=== PATIENT | female | born 1995 | race African-American/Black ===

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

== ENCOUNTER 2017-04-17 18:15 | Inpatient (IN) | payer OTHER ==
[2017-04-17] MEDS ORDERED: METOCLOPRAMIDE HCL INJECTION 10 MG/2 ML VIAL IVPUSH ONE (18:40)
[2017-04-17] MEDS ORDERED: SODIUM CHLORIDE 1,000 ML IV STA (18:40)
[2017-04-17] MEDS ORDERED: ACETAMINOPHEN 1000 MG/100 ML VIAL (NON FORMULARY) IVPB ONE (18:40)
--- NOTE | 2017-04-17 18:46 | PDOC ---
History of Present Illness <Anyi Villalta - Last Filed: 04/17/17 18:51> - General History Source: Patient Exam Limitations: No Limitations <Zaki Waddell - Last Filed: 04/17/17 18:58> - General Stated Complaint: HEADACHE Time Seen by Provider: 04/17/17 18:40 Past History <Anyi Villalta - Last Filed: 04/17/17 18:51> - Past Medical History Anemia: No Asthma: No COPD: No Diabetes: No HTN: No Seizures: No Other medical history: OBESITY - Immunization History Immunization Up to Date: Yes - Suicide/Smoking/Psychosocial Hx Smoking History: Never smoked Have you smoked in the past 12 months: No Information on smoking cessation initiated: No Hx Alcohol Use: No Drug/Substance Use Hx: No Substance Use Type: None <Zaki Waddell - Last Filed: 04/17/17 18:58> - Past Medical History Allergies/Adverse Reactions: Allergies Allergy/AdvReac Type Severity Reaction Status Date / Time No Known Allergies Allergy Verified 07/11/16 12:17 Home Medications: Ambulatory Orders Acetaminophen/Caffeine/Butalb [Fioricet -] 1 tablet PO Q6H PRN #20 tablet MDD 4 tabs 01/24/16 acetaZOLAMIDE [Diamox -] 125 mg PO BID #60 tablet 01/24/16 Doxycycline Hyclate 100 mg PO BID #14 capsule 07/11/16 Oxycodone HCl/Acetaminophen [Percocet 5-325 mg Tablet] 1 tab PO Q4H #10 tablet MDD 6 07/11/16 Review of Systems - Review of Systems Comments:: 04/17/17 18:51 GENERAL/CONSTITUTIONAL: No fever or chills. No weakness. HEAD, EYES, EARS, NOSE AND THROAT: No change in vision. No ear pain or discharge. No sore throat. CARDIOVASCULAR: No chest pain or shortness of breath. RESPIRATORY: No cough, wheezing, or hemoptysis. GASTROINTESTINAL: No nausea, vomiting, diarrhea or constipation. GENITOURINARY: No dysuria, frequency, or change in urination. MUSCULOSKELETAL: No joint or muscle swelling or pain. No neck or back pain. SKIN: No rash NEUROLOGIC: +headache, no vertigo, loss of consciousness, or change in strength/ sensation. ENDOCRINE: No increased thirst. No abnormal weight change. HEMATOLOGIC/LYMPHATIC: No anemia, easy bleeding, or history of blood clots. ALLERGIC/IMMUNOLOGIC: No hives or skin allergy. <Anyi Villalta - Last Filed: 04/17/17 18:51> *Physical Exam - Vital Signs Last Vital Signs Temp Pulse Resp BP Pulse Ox 98.7 F 105 H 17 148/69 100 04/17/17 18:28 04/17/17 18:28 04/17/17 18:28 04/17/17 18:28 04/17/17 18:28 - Physical Exam Comments: 04/17/17 18:48 GENERAL: Awake, alert, and fully oriented, in no acute distress HEAD: No signs of trauma EYES: PERRLA, EOMI, sclera anicteric, conjunctiva clear ENT: Auricles normal inspection, hearing grossly normal, nares patent, oropharynx clear without exudates. Moist mucosa NECK: Normal ROM, supple, no lymphadenopathy, JVD, or masses LUNGS: Breath sounds equal, clear to auscultation bilaterally. No wheezes, and no crackles HEART: Regular rate and rhythm, normal S1 and S2, no murmurs, rubs or gallops ABDOMEN: Soft, obese, nontender, normoactive bowel sounds. No guarding, no rebound. No masses EXTREMITIES: Normal range of motion, no edema. No clubbing or cyanosis. No cords, erythema, or tenderness SKIN: Warm, Dry, normal turgor, no rashes or lesions noted. NEUROLOGICAL: CN II-XII intact, 5/5 strength upper and lower extremities, Sensation intact throughout all extremities, No pronator drift, Gait Normal, Speech Normal,Finger to nose intact, Rapid alternating movements intact <Anyi Villalta - Last Filed: 04/17/17 18:51> - Vital Signs Last Vital Signs Temp Pulse Resp BP Pulse Ox 98.7 F 105 H 17 148/69 100 04/17/17 18:28 04/17/17 18:28 04/17/17 18:28 04/17/17 18:28 04/17/17 18:28 <Zaki Waddell - Last Filed: 04/17/17 18:58> ED Treatment Course - LABORATORY CBC & Chemistry Diagram: 04/17/17 18:51 04/17/17 18:50 <Zaki Waddell - Last Filed: 04/17/17 18:58> Medical Decision Making - Medical Decision Making 04/17/17 18:42 A portion of this note was documented by scribe services under my direction. I have reviewed the details of the note, within reason, and agree with the documentation with the following case summary and management plan written by me. Patient treated in the ED. Nursing notes are reviewed and incorporated into the medical decision-making. Vital signs reviewed. Peripheral IV access obtained by the nurse, laboratory studies are drawn and sent, reviewed and interpreted by myself. Vital Signs Temp Pulse Resp BP Pulse Ox 98.7 F 105 H 17 148/69 100 04/17/17 18:28 04/17/17 18:28 04/17/17 18:28 04/17/17 18:28 04/17/17 18:28 22-year-old female with history of idiopathic intracranial hypertension, migraines, obesity presents with headache for several days. Patient reported a constant throbbing-like headache without photophobia and occasional phonophobia. Denies fevers or neck stiffness. Patient reports that this feels like her prior migraines and idiopathic intracranial hypertension headache. Patient reports that she has had lumbar puncture performed before. States that she denies any blurry vision or difficulty seeing. Came to the ED for further evaluation. The patient is neurologically intact. Differential includes idiopathic, hypertension headache and migraines. We'll give patient's medications for migraines. If the headache does not improve, patient should be admitted for consideration for lumbar puncture. I had counseled the patient on weight loss counseling given her obesity and idiopathic intracranial hypertension. We'll give referral to a back surgeon at the request of the patient. Case signed out to Dr. Vidal for further management and disposition. <Zaki Waddell - Last Filed: 04/17/17 18:58> *DC/Admit/Observation/Transfer <Anyi Villalta - Last Filed: 04/17/17 18:51> <Zaki Waddell - Last Filed: 04/17/17 18:58> Diagnosis at time of Disposition: Pseudotumor cerebri - Discharge Dispostion Condition at time of disposition: Stable - Referrals Referrals: Justino Brothers DO [Staff Physician] - Tariq Graham MD [Staff Physician] - - Patient Instructions Printed Discharge Instructions: DI for Headache
[2017-04-17 18:54] LABS: BASO % 0.6 % (0-2.0); WHITE BLOOD COUNT 7.4 K/mm3 (4.0-10.0)
[2017-04-17] MEDS ORDERED: METOCLOPRAMIDE HCL INJECTION 10 MG/2 ML VIAL ONE (18:54)
[2017-04-17] MEDS ORDERED: ACETAMINOPHEN INJECTION 100 ML IVPB ONE (18:54)
[2017-04-17 19:02] LABS: EOS % 1.5 % (0-4.5); HEMATOCRIT 20.2 % (32.4-45.2); LYMPH % 25.3 % (8-40); MCHC 29.5 g/dl (32.0-36.0); MEAN CELL VOLUME 55.1 fl (80-96); MEAN PLT VOLUME 8.9 fl (7.5-11.1); MONO % 5.9 % (3.8-10.2); NEUT % 66.7 % (42.8-82.8); PLATELET COUNT 208 K/MM3 (134-434); RBC 3.66 M/mm3 (3.60-5.2); RDW 19.4 % (11.6-15.6)
[2017-04-17 19:03] LABS: MCH 16.2 pg (25.7-33.7)
[2017-04-17 19:04] LABS: HEMOGLOBIN 5.9 GM/dL (10.7-15.3)
[2017-04-17 19:17] LABS: ALBUMIN 3.1 g/dl (3.4-5.0); ALK PHOS 87 U/L (45-117); ANION GAP 6 (8-16); BILIRUBIN,TOTAL 0.2 mg/dL (0.2-1.0); BLOOD UREA NITROGEN 9 mg/dL (7-18); CHLORIDE 109 mmol/L (98-107); CO2 27 mmol/L (21-32); CREATININE 0.9 mg/dL (0.55-1.02); GLUCOSE,RANDOM 85 mg/dL (74-106); POTASSIUM 3.6 mmol/L (3.5-5.1); SGOT/AST 15 U/L (15-37); SGPT/ALT 15 U/L (12-78); SODIUM 142 mmol/L (136-145); TOT PROT 7.2 g/dl (6.4-8.2)
[2017-04-17 21:07] LABS: BASO % 0.5 % (0-2.0); EOS % 1.9 % (0-4.5); HEMATOCRIT 19.3 % (32.4-45.2); MCHC 29.4 g/dl (32.0-36.0); MEAN CELL VOLUME 55.2 fl (80-96); MEAN PLT VOLUME 8.7 fl (7.5-11.1); MONO % 6.3 % (3.8-10.2); NEUT % 62.3 % (42.8-82.8); PLATELET COUNT 201 K/MM3 (134-434); RBC 3.49 M/mm3 (3.60-5.2); RDW 19.8 % (11.6-15.6); WHITE BLOOD COUNT 7.5 K/mm3 (4.0-10.0)
[2017-04-17 21:08] LABS: HEMOGLOBIN 5.7 GM/dL (10.7-15.3); MCH 16.2 pg (25.7-33.7)
--- NOTE | 2017-04-17 21:11 | PDOC ---
*Physical Exam - Vital Signs Last Vital Signs Temp Pulse Resp BP Pulse Ox 98.7 F 105 H 17 148/69 100 04/17/17 18:28 04/17/17 18:28 04/17/17 18:28 04/17/17 18:28 04/17/17 18:28 ED Treatment Course - LABORATORY CBC & Chemistry Diagram: 04/17/17 20:59 04/17/17 18:50 - ADDITIONAL ORDERS Additional order review: Laboratory Results 04/17/17 04/17/17 18:51 18:50 Sodium 142 Potassium 3.6 Chloride 109 H Carbon Dioxide 27 Anion Gap 6 L BUN 9 Creatinine 0.9 Creat Clearance w eGFR > 60 Random Glucose 85 Calcium 8.0 L Total Bilirubin 0.2 AST 15 ALT 15 Alkaline Phosphatase 87 Total Protein 7.2 Albumin 3.1 L Serum , Qual Negative 04/17/17 04/17/17 20:59 18:51 RBC 3.49 L 3.66 D MCV 55.2 L 55.1 L MCHC 29.4 L 29.5 L RDW 19.8 H 19.4 H D MPV 8.7 8.9 Neutrophils % 62.3 66.7 D Lymphocytes % 29.0 25.3 D Monocytes % 6.3 5.9 D Eosinophils % 1.9 1.5 D Basophils % 0.5 0.6 - Medications Given in the ED: ED Medications Discontinued Medications Generic Name Dose Route Start Last Admin Trade Name Freq PRN Reason Stop Dose Admin Acetaminophen 1,000 mg 04/17/17 18:40 04/17/17 19:04 Ofirmev Injection - IVPB 04/17/17 18:41 1,000 mg ONCE ONE Administration Diphenhydramine HCl 25 mg 04/17/17 18:40 04/17/17 19:04 Benadryl Injection - IVPB 04/17/17 18:41 25 mg ONCE ONE Administration Sodium Chloride 1,000 mls @ 1,000 mls/hr 04/17/17 18:40 04/17/17 19:04 Normal Saline - IV 04/17/17 19:39 1,000 mls/hr ASDIR STA Administration Metoclopramide HCl 10 mg 04/17/17 18:40 04/17/17 19:05 Reglan Injection - IVPUSH 04/17/17 18:41 10 mg ONCE ONE Administration Medical Decision Making - Medical Decision Making 04/17/17 21:10 Late entry. Pt endorsed to me by Dr. Waddell at 7pm shift change. Presented with headache, found to have significant anemia, which was unexpected. Repeat CBC has resulted, similar to prior. Will send additional anemia labs and plan for transfusion and admission. Will discuss with patient regarding possible etiology of anemia. 04/17/17 21:28 Results d/w patient. She has history of similar presentation in the past, required transfusion. Agreeable to admission. *DC/Admit/Observation/Transfer Diagnosis at time of Disposition: Pseudotumor cerebri Anemia Qualifiers: Anemia type: unspecified type Qualified Code(s): D64.9 - Anemia, unspecified Headache Qualifiers: Headache type: unspecified Headache chronicity pattern: episodic headache Intractability: not intractable Qualified Code(s): R51 - Headache - Discharge Dispostion Condition at time of disposition: Stable Admit: Yes - Referrals Referrals: Tariq Graham MD [Staff Physician] - Justino Brothers DO [Staff Physician] - - Patient Instructions Printed Discharge Instructions: DI for Headache - Post Discharge Activity
[2017-04-17 21:20] LABS: INR 1.11 (0.82-1.09); PROTHROMBIN TIME (PATIENT) 12.5 SEC (9.98-11.88)
[2017-04-17 21:22] LABS: ACTIVATED PTT 28.6 SECONDS (26.9-34.4)
--- NOTE | 2017-04-17 21:41 | PN ---
Teaching Attending Note Name of Resident: Mark Hale ATTENDING PHYSICIAN STATEMENT I saw and evaluated the patient. I reviewed the resident's note and discussed the case with the resident. I agree with the resident's findings and plan as documented. SUBJECTIVE: 22 F with Pmhx of Anemia and idiopathic intercranial htn, migraines and obesity who presented with headache which is dull and throbbing for 5 days. States headache is the same as her migraines. Denies any visual changes. States headache is much improved after recieving medications earlier. Denies any numbness or tingling. States she was anemic one year ago, when she was hospitalized for headache. States her last period was in February and she menstruated for close to 2 weeks, going through around 3/pads/day. Note she has never seen a gynocologist. States she is not on any OCPS. States her menstrual cycle is irregular. She currently denies any hematemeis, Hematouria or black/ bloody stools. Denies any chest pain, pressure, or shortness of breath. as per her mom she was evaluated at for Sick cell/thal and screening was negative. Denies any neck pain/ Stiffness. No fevers or chills. OBJECTIVE: Physical: VS: GEN: Obese female, NAD, resting in bed, AA0X3 HEENT: NCAT, PERRL, Throat without erythema or exudates CARD: S Tach S1 S2 RESP: CTAB ABD: BSx4, NTD to palpation EXT: - C/C/E RECTAL: Deferrred Vital Signs Period Temp Pulse Resp BP Sys/Holly Pulse Ox Last 24 Hr 98.7 F 105 17 148/69 100 CBCD WBC 7.5 K/mm3 (4.0-10.0) 04/17/17 20:59 RBC 3.49 M/mm3 (3.60-5.2) L 04/17/17 20:59 Hgb 5.7 GM/dL (10.7-15.3) L* 04/17/17 20:59 Hct 19.3 % (32.4-45.2) L 04/17/17 20:59 MCV 55.2 fl (80-96) L 04/17/17 20:59 MCHC 29.4 g/dl (32.0-36.0) L 04/17/17 20:59 RDW 19.8 % (11.6-15.6) H 04/17/17 20:59 Plt Count 201 K/MM3 (134-434) 04/17/17 20:59 MPV 8.7 fl (7.5-11.1) 04/17/17 20:59 CMP Sodium 142 mmol/L (136-145) 04/17/17 18:50 Potassium 3.6 mmol/L (3.5-5.1) 04/17/17 18:50 Chloride 109 mmol/L (98-107) H 04/17/17 18:50 Carbon Dioxide 27 mmol/L (21-32) 04/17/17 18:50 Anion Gap 6 (8-16) L 04/17/17 18:50 BUN 9 mg/dL (7-18) 04/17/17 18:50 Creatinine 0.9 mg/dL (0.55-1.02) 04/17/17 18:50 Creat Clearance w eGFR > 60 (>60) 04/17/17 18:50 Random Glucose 85 mg/dL (74-106) 04/17/17 18:50 Calcium 8.0 mg/dL (8.5-10.1) L 04/17/17 18:50 Total Bilirubin 0.2 mg/dL (0.2-1.0) 04/17/17 18:50 AST 15 U/L (15-37) 04/17/17 18:50 ALT 15 U/L (12-78) 04/17/17 18:50 Alkaline Phosphatase 87 U/L (45-117) 04/17/17 18:50 Total Protein 7.2 g/dl (6.4-8.2) 04/17/17 18:50 Albumin 3.1 g/dl (3.4-5.0) L 04/17/17 18:50 CT HEAD- PENDING PELVIC US- PENDING EKG- S Tach ASSESSMENT AND PLAN: 22 F with Pmhx of Anemia and idiopathic intercranial htn, migraines and obesity who presented with headache, found to be anemic 1.) Symptomatic Anemia - Microcytic - FU Fe studies,LDH, Retic - Transfuse 2 U PRBC - Goal HgB >7 - Type & Screen - Repeat CBC post tx - Heme consult for IV iron - Cad Designer consult - Check TSH 2.) Headache - Most likely migraine - CT Head due to severity and duration - Pain Control - If not resolving can consider LP 3.) DVT PPx - SCDs Rest as per resident note
[2017-04-17 21:44] LABS: LDH 198 U/L (84-246)
--- NOTE | 2017-04-17 21:58 | HP ---
CHIEF COMPLAINT: Headache x 5 days PCP: Kathy Mora HISTORY OF PRESENT ILLNESS: The Pt is a 22yo F with PMHx of idiopathic intracranial HTN, migraine and obesity presenting with a 5 day hx of headache. The pain is 7-10/10, located frontally and occipitally, has been constant, dull and occasionally burning. Relieved by lying in a dark room. No associated n/v/ no preceding aura, no blurry vision, no dizziness, palpitations or chest pain. No fever or neck pain, no myalgias or sick contacts. Pt noticed a cough today which is non productive. Pt has had similar headaches in the past. 2 years ago she was diagnsed here with idiopathic intracranial HTN and had CSF decompression to relieve the headache. She does not use any migraine medications at home except for motrin. No hx of contraceptive use. While in the ED, pt was found to be anemic at 5.7. No hx of hemolysis in the past, no bleeding disorder, no melena stool or BRBPR. Pt normally has irregular cycles lasting between 3 days and 2 weeks soaking up to 3 pads in the day time and occassionally with clots. LMP was late February, no associated dysmenorrhea. Pt had similar iron deficiency anemia a her last admission 2015 and was transfused. She does not have a property developer, and has never been investigated for the heavy bleeds. ER course was notable for: (1) hgb-5.7, Ferritin-1.2 (2)iv tylenol 1g, NS -1L (3)type and screen, Recent Travel: None PAST MEDICAL HISTORY: idiopathic intracranial HTN, migraine obesity Gyne: LMP february 2016 PAST SURGICAL HISTORY: Social History: Smoking:Never Alcohol:Never Drugs: Never Family History: No bleeding hx Allergies No Known Allergies Allergy (Verified 07/11/16 12:17) HOME MEDICATIONS: Home Medications Medication Instructions Recorded Acetaminophen/Caffeine/Butalb 1 tablet PO Q6H PRN #20 tablet MDD 01/24/16 [Fioricet -] 4 tabs acetaZOLAMIDE [Diamox -] 125 mg PO BID #60 tablet 01/24/16 Doxycycline Hyclate 100 mg PO BID #14 capsule 07/11/16 Oxycodone HCl/Acetaminophen 1 tab PO Q4H #10 tablet MDD 6 07/11/16 [Percocet 5-325 mg Tablet] REVIEW OF SYSTEMS CONSTITUTIONAL: Absent: fever, chills, diaphoresis, generalized weakness, malaise, loss of appetite, weight change HEENT: Absent: rhinorrhea, nasal congestion, throat pain, throat swelling, difficulty swallowing, mouth swelling, ear pain, eye pain, visual changes CARDIOVASCULAR: Absent: chest pain, syncope, palpitations, irregular heart rate, lightheadedness , peripheral edema RESPIRATORY: Absent: cough, shortness of breath, dyspnea with exertion, orthopnea, wheezing, stridor, hemoptysis GASTROINTESTINAL: Absent: abdominal pain, abdominal distension, nausea, vomiting, diarrhea, constipation, melena, hematochezia GENITOURINARY: Absent: dysuria, frequency, urgency, hesitancy, hematuria, flank pain, genital pain MUSCULOSKELETAL: Absent: myalgia, arthralgia, joint swelling, back pain, neck pain SKIN: Absent: rash, itching, pallor HEMATOLOGIC/IMMUNOLOGIC: Absent: easy bleeding, easy bruising, lymphadenopathy, frequent infections ENDOCRINE: Absent: unexplained weight gain, unexplained weight loss, heat intolerance, cold intolerance NEUROLOGIC: Absent: headache+, focal weakness or paresthesias, dizziness, unsteady gait, seizure, mental status changes, bladder or bowel incontinence PSYCHIATRIC: Absent: anxiety, depression, suicidal or homicidal ideation, hallucinations. PHYSICAL EXAMINATION Vital Signs - 24 hr 04/17/17 18:28 Temperature 98.7 F Pulse Rate 105 H Respiratory 17 Rate Blood Pressure 148/69 O2 Sat by Pulse 100 Oximetry (%) GENERAL: Awake, alert, and fully oriented, in no acute distress. HEAD: Normal with no signs of trauma. EYES: Pupils equal, round and reactive to light, extraocular movements intact, sclera anicteric, conjunctiva clear. Fundoscopic exam: Could not appreciate any papilledema EARS, NOSE, THROAT: Ears normal, nares patent, oropharynx clear without exudates. Moist mucous membranes. NECK: Normal range of motion, supple without lymphadenopathy, JVD, or masses. LUNGS: Breath sounds equal, clear to auscultation bilaterally. No wheezes, and no crackles. HEART: Tachycardic, S1 and S2 ABDOMEN: Soft, nontender, not distended, normoactive bowel sounds, no guarding, no rebound, no masses. CRISTINA: Good anal hygiene, no skin tags. No palpable masses, rectal vault empty of stool. Gloved finger clean. FOBT- negative MUSCULOSKELETAL: Normal range of motion at all joints. No bony deformities or tenderness. No CVA tenderness. UPPER EXTREMITIES: 2+ pulses, warm, well-perfused. No cyanosis. No clubbing. No peripheral edema. LOWER EXTREMITIES: 2+ pulses, warm, well-perfused. No calf tenderness. No peripheral edema. NEUROLOGICAL: Cranial nerves II-XII intact. Normal speech. PSYCHIATRIC: Cooperative. Good eye contact. Appropriate mood and affect. Laboratory Results - last 24 hr 04/17/17 04/17/17 04/17/17 18:50 18:51 18:51 WBC 7.4 D RBC 3.66 D Hgb 5.9 L* D Hct 20.2 L D MCV 55.1 L MCH 16.2 L MCHC 29.5 L RDW 19.4 H D Plt Count 208 D MPV 8.9 Neutrophils % 66.7 D Lymphocytes % 25.3 D Monocytes % 5.9 D Eosinophils % 1.5 D Basophils % 0.6 PT with INR INR PTT (Actin FS) Sodium 142 Potassium 3.6 Chloride 109 H Carbon Dioxide 27 Anion Gap 6 L BUN 9 Creatinine 0.9 Creat Clearance w eGFR > 60 Random Glucose 85 Calcium 8.0 L Ferritin 1.289 L Total Bilirubin 0.2 AST 15 ALT 15 Alkaline Phosphatase 87 LD Total 198 Total Protein 7.2 Albumin 3.1 L Serum , Qual Negative Crossmatch 04/17/17 04/17/17 04/17/17 20:59 20:59 20:59 WBC 7.5 RBC 3.49 L Hgb 5.7 L* Hct 19.3 L MCV 55.2 L MCH 16.2 L MCHC 29.4 L RDW 19.8 H Plt Count 201 MPV 8.7 Neutrophils % 62.3 Lymphocytes % 29.0 Monocytes % 6.3 Eosinophils % 1.9 Basophils % 0.5 PT with INR 12.50 H INR 1.11 PTT (Actin FS) 28.6 Sodium Potassium Chloride Carbon Dioxide Anion Gap BUN Creatinine Creat Clearance w eGFR Random Glucose Calcium Ferritin Total Bilirubin AST ALT Alkaline Phosphatase LD Total Total Protein Albumin Serum , Qual Crossmatch See Detail ASSESSMENT/PLAN: Pt is a 22yo F with PMHx of idiopathic intracranial HTN, migraine and obesity presenting with a 5 day hx of headache and found to be anemic Headache: Could be 2/2 to anemia R/O migraine R/O idiopathic intracranial hemorrhage Received iv tylenol Tachycardia, Hgb-5.7, Microcytic anemia Iv NS 1L type and screen Transfuse 2 units of PRBC Iv tylenol CT head TSH Microcytic anemia: Could be 2/2 to menometrorrhagia heavy and prolonged menstrual bleeds Hgb-5.7 Ferritin- 1.289 Pending TIBC- Retic Haptoglobulins type and screen Transfuse 2 units of PRBC Hemonc consult- Dr Weeks Repeat CBC Insurance Office Manager consult- Dr Villegas Pelvis/bladder US Fecal occult test- negative 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 - New Patient This patient is new to me today: Yes Date on this admission: 04/18/17 - Critical Care Critical Care patient: No Hospitalist Screening - Colonoscopy Questionnaire Colonoscopy Questionnaire: Colonoscopy Questionnaire - Patient: 50 - 75 years old and never had a screening colonoscopy: No History of colon or rectal polyps, or CA: No History of IBD, Crohn's disease or UC: No History of abdominal radiation therapy as a child: No - Relative: 1 with colon or rectal CA, or polyps at age 60 or younger: No Colon or rectal CA diagnosed at age 45 or younger: No Multiple relatives with colon or rectal CA: No - Outcome: Screening Result: Negative Screen
[2017-04-17] MEDS: SODIUM CHLORIDE 1,000 ML IV STA (22:35)
[2017-04-18] MEDS ORDERED: ACETAMINOPHEN 1000 MG/100 ML VIAL (NON FORMULARY) IVPB ONE ×2 (00:03→04:00)
[2017-04-18] MEDS: SODIUM CHLORIDE 1,000 ML IV STA (00:24)
[2017-04-18 06:59] VITALS: BMI 52.7
[2017-04-18 07:14] LABS: INR 1.09 (0.82-1.09); PROTHROMBIN TIME (PATIENT) 12.3 SEC (9.98-11.88)
--- NOTE | 2017-04-18 07:16 | PN ---
Physical Exam: SUBJECTIVE: Patient seen and examined. s/p 2 units of PRBC. Says headache resolved after the transfusion. Patient states she has irregular menses and never seen a horticultural technical officer. Denies dizziness, SOB, chest pain ,nausea, vomiting, blood in stool. OBJECTIVE: Vital Signs Period Temp Pulse Resp BP Sys/Holly Pulse Ox Last 24 Hr 98.1 F-982 F 99-106 17-24 114-148/64-80 99-100 GENERAL: Obese, The patient is awake, alert, and fully oriented, in no acute distress. HEAD: Normal with no signs of trauma. EYES: PERRL, extraocular movements intact, sclera anicteric, conjunctiva clear. No ptosis. ENT: oropharynx clear without exudates, moist mucous membranes. NECK: supple. LUNGS: Breath sounds equal, clear to auscultation bilaterally, no wheezes, no crackles, no accessory muscle use. HEART: tachy, regular rhythm, S1, S2 without murmur, rub or gallop. ABDOMEN: Soft, nontender, nondistended, normoactive bowel sounds, no guarding, no rebound. EXTREMITIES: 2+ pulses, warm, well-perfused, no edema. NEUROLOGICAL: Cranial nerves II through XII grossly intact. Normal speech, gait not observed. PSYCH: Normal mood, normal affect. SKIN: Warm, dry, normal turgor, no rashes or lesions noted Laboratory Results - last 24 hr 04/17/17 04/17/17 04/17/17 18:50 18:51 18:51 WBC 7.4 D RBC 3.66 D Hgb 5.9 L* D Hct 20.2 L D MCV 55.1 L MCH 16.2 L MCHC 29.5 L RDW 19.4 H D Plt Count 208 D MPV 8.9 Neutrophils % 66.7 D Lymphocytes % 25.3 D Monocytes % 5.9 D Eosinophils % 1.5 D Basophils % 0.6 PT with INR INR PTT (Actin FS) Sodium 142 Potassium 3.6 Chloride 109 H Carbon Dioxide 27 Anion Gap 6 L BUN 9 Creatinine 0.9 Creat Clearance w eGFR > 60 Random Glucose 85 Calcium 8.0 L Ferritin 1.289 L Total Bilirubin 0.2 AST 15 ALT 15 Alkaline Phosphatase 87 LD Total 198 Total Protein 7.2 Albumin 3.1 L Serum , Qual Negative Stool Occult Blood Blood Type Antibody Screen Crossmatch 02/25/18 02/25/18 02/25/18 20:57 20:59 20:59 WBC RBC Hgb Hct MCV MCH MCHC RDW Plt Count MPV Neutrophils % Lymphocytes % Monocytes % Eosinophils % Basophils % PT with INR 12.50 H INR 1.11 PTT (Actin FS) 28.6 Sodium Potassium Chloride Carbon Dioxide Anion Gap BUN Creatinine Creat Clearance w eGFR Random Glucose Calcium Ferritin Total Bilirubin AST ALT Alkaline Phosphatase LD Total Total Protein Albumin Serum , Qual Stool Occult Blood Blood Type O POSITIVE O POSITIVE Antibody Screen Negative Crossmatch See Detail 04/17/17 04/17/17 20:59 22:30 WBC 7.5 RBC 3.49 L Hgb 5.7 L* Hct 19.3 L MCV 55.2 L MCH 16.2 L MCHC 29.4 L RDW 19.8 H Plt Count 201 MPV 8.7 Neutrophils % 62.3 Lymphocytes % 29.0 Monocytes % 6.3 Eosinophils % 1.9 Basophils % 0.5 PT with INR INR PTT (Actin FS) Sodium Potassium Chloride Carbon Dioxide Anion Gap BUN Creatinine Creat Clearance w eGFR Random Glucose Calcium Ferritin Total Bilirubin AST ALT Alkaline Phosphatase LD Total Total Protein Albumin Serum , Qual Stool Occult Blood Negative Blood Type Antibody Screen Crossmatch ASSESSMENT/PLAN: 22 yo F wtih PMH pseudotumor cerebri, migraines and anemia with irregular menses presented with headache and was found with a Hgb 5.9. #Symptomatic Anemia -s/p 2 Units of PRBC -Hgb now at 7.5. Will repeat Hgb. -Ferritin of 1.2, Venofer x 1 given. -Gynecology and hematology consulted. -FU reccs -FOBT negative -FU Vaginal U/S #Migraines -resolved -Head CT unremarkable -Fioricet prn q6h -Follow up neuro outpatient #Hx of Pseudotumor Cerebri -no suspicion at this time -last attack in 2016 -Not on any meds #Morbid obesity -BMI of 52 -Bariatric referral on discharge #FEN -No IV fluids -WNL -Cholesterol/Fat controlled diet #PPX -EAM Dispo: Likely d/c tomorrow, pending heme consult Visit type - Emergency Visit Emergency Visit: Yes ED Registration Date: 04/17/17 Care time: The patient presented to the Emergency Department on the above date and was hospitalized for further evaluation of their emergent condition. - New Patient This patient is new to me today: Yes Date on this admission: 04/18/17 - Critical Care Critical Care patient: No
[2017-04-18 07:20] LABS: ALBUMIN 2.7 g/dl (3.4-5.0); ANION GAP 7 (8-16); BILIRUBIN,TOTAL 0.4 mg/dL (0.2-1.0); BLOOD UREA NITROGEN 7 mg/dL (7-18); CALCIUM 7.6 mg/dL (8.5-10.1); CHLORIDE 111 mmol/L (98-107); CO2 24 mmol/L (21-32); CREATININE 0.8 mg/dL (0.55-1.02); GLUCOSE,RANDOM 74 mg/dL (74-106); MAGNESIUM 1.9 mg/dL (1.8-2.4); PHOSPHOROUS 3.5 mg/dL (2.5-4.9); POTASSIUM 3.6 mmol/L (3.5-5.1); SGOT/AST 14 U/L (15-37); SGPT/ALT 13 U/L (12-78); SODIUM 142 mmol/L (136-145); TOT PROT 6.5 g/dl (6.4-8.2)
[2017-04-18 07:23] LABS: BASO % 0.5 % (0-2.0); LYMPH % 30.5 % (8-40); MCHC 30.4 g/dl (32.0-36.0); MEAN CELL VOLUME 58.5 fl (80-96); MEAN PLT VOLUME 9.6 fl (7.5-11.1); MONO % 6.8 % (3.8-10.2); NEUT % 60.2 % (42.8-82.8); PLATELET COUNT 172 K/MM3 (134-434); RBC 3.76 M/mm3 (3.60-5.2); RDW 24.2 % (11.6-15.6); WHITE BLOOD COUNT 7.5 K/mm3 (4.0-10.0)
[2017-04-18 07:29] LABS: ALK PHOS 78 U/L (45-117)
[2017-04-18 07:51] LABS: MCH 17.8 pg (25.7-33.7)
[2017-04-18 07:52] LABS: HEMOGLOBIN 6.7 GM/dL (10.7-15.3)
--- NOTE | 2017-04-18 08:08 | CON.OBG ---
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 h/o hospitalization 01/2016 for headache. LP brain MRI & CThead was done, neg ). No: Seizure Cardio/Vascular: No: HTN, Murmur Pulmonary: No: Asthma Gastrointestinal: No: Constipation, Gastritis Renal/: No: UTI ...LMP: 03/17/17 (last period was 10 days bleeding lingering ) ...: 0 ...Para: 0 Heme/Onc: Yes: Anemia (hospitalized in 01/2016 for same episode she was transfused ). No: Bleeding Disorder, Sickle Cell Disease Infectious Disease: No: Other (denies any infection ) Psych: No: Other (denies mental disorder) Musculoskeletal: No: Chronic low back pain Rheumatology: Yes: Other (declines any history) Endocrine: No: Diabetes Mellitus, Hypothyroidism - Past Surgical History Past Surgical History: Yes: None - Alcohol/Substance Use Hx Alcohol Use: No History of Substance Use: reports: None - Smoking History Smoking history: Never smoked Have you smoked in the past 12 months: No Home Medications - Allergies Allergies/Adverse Reactions: Allergies Allergy/AdvReac Type Severity Reaction Status Date / Time No Known Allergies Allergy Verified 07/11/16 12:17 - Home Medications Home Medications: Ambulatory Orders Acetaminophen/Caffeine/Butalb [Fioricet -] 1 tablet PO Q6H PRN #20 tablet MDD 4 tabs 01/24/16 acetaZOLAMIDE [Diamox -] 125 mg PO BID #60 tablet 01/24/16 Doxycycline Hyclate 100 mg PO BID #14 capsule 07/11/16 Oxycodone HCl/Acetaminophen [Percocet 5-325 mg Tablet] 1 tab PO Q4H #10 tablet MDD 6 07/11/16 Review of Systems - Review of Systems Constitutional: reports: No Symptoms. denies: Chills Eyes: reports: No Symptoms HENT: reports: Other (headache) Neck: reports: No Symptoms. denies: Pain on Movement, Stiffness Cardiovascular: reports: No Symptoms. denies: Chest Pain, Shortness of Breath Respiratory: reports: No Symptoms. denies: Hemoptysis, SOB Gastrointestinal: reports: No Symptoms. denies: Constipation, Rectal Bleeding, Vomiting Blood Genitourinary: reports: No Symptoms. denies: Vaginal Bleeding Breasts: denies: No Symptoms Reported Musculoskeletal: reports: No Symptoms. denies: Back Pain Neurological: reports: Headache. 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 No: Rigid, Tenderness Cardiovascular: Yes: WNL, Regular Rate and Rhythm Respiratory: Yes: WNL Gastrointestinal: Yes: Normal Bowel Sounds, Soft, Abdomen, Obese, Other (no mass felt) Pelvis: Yes: WNL External Genitalia: Yes: Normal Vaginal Exam: Yes: Normal Cervix: Yes: Normal, Other (deferred speculum exam beacuse pt is virgin). No: Cerv Motion Tenderness Uterus: Yes: Anteverted, Other (ut size could not be determined due to body habitus) Adnexa: Not Palpable: Bilateral (not tender, unable to evaluate due to body habitus ) Breast(s): Yes: WNL, Other (large breast size). No: Mass Musculoskeletal: Yes: WNL Extremities: Yes: WNL. No: Calf Tenderness Edema: No Integumentary: Yes: WNL Neurological: Yes: WNL ...Motor Strength: WNL Psychiatric: Yes: WNL, Alert, Oriented Labs: CBC, BMP 04/18/17 06:25 04/18/17 06:25 Laboratory Tests 04/17/17 04/17/17 04/17/17 18:50 18:51 20:59 WBC 7.4 D RBC 3.66 D Hgb 5.9 L* D Hct 20.2 L D MCV 55.1 L MCH 16.2 L MCHC 29.5 L RDW 19.4 H D Plt Count 208 D PT with INR 12.50 H INR 1.11 PTT (Actin FS) 28.6 Ferritin 1.289 L Total Bilirubin AST ALT Alkaline Phosphatase Total Protein Albumin TSH Stool Occult Blood 04/17/17 04/18/17 22:30 06:25 WBC RBC Hgb Hct MCV MCH MCHC RDW Plt Count PT with INR INR PTT (Actin FS) Ferritin Total Bilirubin 0.4 D AST 14 L ALT 13 Alkaline Phosphatase 78 Total Protein 6.5 Albumin 2.7 L TSH 4.21 H Stool Occult Blood Negative Problem List - Problems (1) Irregular periods/menstrual cycles Code(s): N92.6 - IRREGULAR MENSTRUATION, UNSPECIFIED (2) Anemia Code(s): D64.9 - ANEMIA, UNSPECIFIED Qualifiers: Anemia type: unspecified type Qualified Code(s): D64.9 - Anemia, unspecified (3) Headache Code(s): R51 - HEADACHE Qualifiers: Headache type: unspecified Headache chronicity pattern: episodic headache Intractability: not intractable Qualified Code(s): R51 - Headache Assessment/Plan 22 yrs , morbidly obese, severe Iron deff anemia irregular menstural cycle Wth prolonged periods sometimes , possible Anovulatory cycle due to obesity . r/o metabolic syndrome , r/o Hyperlilpdemia r/o clinical counselor pathology by pelvic & TVsono ( pt is explained, she may be perla to tolearte TV sono exam ) anemia receiving blood transfusions currently she may benefit from Oc pills, ( though relative contraindication for headache, she is high risk for DVt due to obesity). another option is to place on cyclical progesterone ( 10 mg po provera ) fo r15 days of the cycle after 1st day of cycle to counter unopposed estrogen effect. another option is to place Mirena ( progestrone IUD ) if patient permits .
[2017-04-18 11:50] LABS: PLATELET ESTIMATE ADEQUATE
--- NOTE | 2017-04-18 13:25 | PN ---
Teaching Attending Note Name of Resident: Amy Crook ATTENDING PHYSICIAN STATEMENT I saw and evaluated the patient. I reviewed the resident's note and discussed the case with the resident. I agree with the resident's findings and plan as documented. SUBJECTIVE:KIRBY resolved with IVF and blood received in the ER. has not been compliant iwth her medications as her refills ran out and have not been back to see her doctor. was never evaluated for irregular menses that are moderate amount of bleeding 4-5/day. never saw a DIRECTOR OF SALES or discussed with PMD about menses. denies CP, SOB, fever, chills, N/V/C/D. no hematuria, vaginal bleeding, melena or BRBPR was never told she was iron deficient OBJECTIVE: Last Vital Signs Temp Pulse Resp BP Pulse Ox 98.8 F 106 H 20 130/68 99 04/18/17 10:00 04/18/17 10:00 04/18/17 10:00 04/18/17 10:00 04/18/17 09:00 General NAD CV S1 S2 tachy Lungs CTA B/L no wheezing/rales/rhonchi Abdomen soft NT/ND morbid obese ASSESSMENT AND PLAN: 22yo F wtih PMH pseudotumor cerebri, migraines and anemia with irregular menses presented with KIRBY and found Hgb 5.9. 1. Symptomatic anemia- s/p 1 unit PRBC. just completed 2nd unit. will repeat Hgb. ferritin of 1. give Venofer x1. DIRECTOR OF SALES and Hematology consulted. may benefit from OCP use but due to KIRBY may not be safe. Head CT and vaginal u/s pending. FOBT negative 2. Migraines- KIRBY now resolved. confirm home medications and re-start 3. Pseudotumor cerebri- was on acetazolamide but stopped due to running out. will confirm medications 4. Morbid obesity- BMI 52. bariatric referral on discharge 5. DVT ppx- EAM 6. can likley d/c home tomorrow pending heme consult and response to txn
[2017-04-18] MEDS ORDERED: IRON SUCROSE INJECTION 200 MG in SODIUM CHLORIDE 240 ML IVPB ONE (14:00)
[2017-04-18 14:14] LABS: HEMATOCRIT 24.8 % (32.4-45.2); HEMOGLOBIN 7.5 GM/dL (10.7-15.3); MCHC 30.3 g/dl (32.0-36.0); MEAN CELL VOLUME 61.1 fl (80-96); PLATELET COUNT 185 K/MM3 (134-434); RBC 4.05 M/mm3 (3.60-5.2); RDW 28.1 % (11.6-15.6); WHITE BLOOD COUNT 9.8 K/mm3 (4.0-10.0)
[2017-04-18 14:22] LABS: MCH 18.6 pg (25.7-33.7)
[2017-04-18] MEDS: IRON SUCROSE INJECTION 200 MG in SODIUM CHLORIDE 100 ML IVPB ONE ×2 (15:05→15:14)
[2017-04-18] MEDS ORDERED: IRON SUCROSE INJECTION 200 MG in SODIUM CHLORIDE 100 ML IVPB ONE (15:15)
[2017-04-18] MEDS ORDERED: ACETAMINOPHEN 325 MG TABLET (FP) PO PRN (15:52)
--- NOTE | 2017-04-18 17:02 | EKG ---
Test Reason : Blood Pressure : / mmHG Vent. Rate : 110 BPM Atrial Rate : 110 BPM P-R Int : 130 ms QRS Dur : 088 ms QT Int : 346 ms P-R-T Axes : 042 015 021 degrees QTc Int : 468 ms SINUS TACHYCARDIA NONSPECIFIC T WAVE ABNORMALITY ABNORMAL ECG NO PREVIOUS ECGS AVAILABLE Confirmed by KEI HEATON MD ([id number]) on 04/18/2017 5:02:06 PM Referred By: Confirmed By:KEI HEATON MD
--- NOTE | 2017-04-18 18:52 | CONSULT ---
Consult - text type - Consultation Consultation Note: 22 yrs , LMP 03/17/17 admitted for severe anemia( h/h 5.9/20.2 & severe headache ) History of Present Illness: Currently feels well. 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 No: Bleeding Disorder, Sickle Cell Disease Rheumatology: Yes: Other (declines any history) - Smoking History Smoking history: Never smoked - Allergies Allergies/Adverse Reactions: Allergies Allergy/AdvReac Type Severity Reaction Status Date / Time No Known Allergies Allergy Verified 07/11/16 12:17 - Home Medications Home Medications: Ambulatory Orders Acetaminophen/Caffeine/Butalb [Fioricet -] 1 tablet PO Q6H PRN #20 tablet MDD 4 tabs 01/24/16 acetaZOLAMIDE [Diamox -] 125 mg PO BID #60 tablet 01/24/16 Doxycycline Hyclate 100 mg PO BID #14 capsule 07/11/16 Oxycodone HCl/Acetaminophen [Percocet 5-325 mg Tablet] 1 tab PO Q4H #10 tablet MDD 6 07/11/16 Vital Signs: Last Vital Signs Temp Pulse Resp BP Pulse Ox 98.5 F 108 H 20 154/94 99 04/18/17 17:00 04/18/17 17:00 04/18/17 17:00 04/18/17 17:00 04/18/17 09:00 Cor: RSR, No murmurs, No gallops Lungs: Clear to P&A Abd: Soft, Normal bowel sounds, No organomegaly Ext:No significant edema Labs: CBC, BMP 04/18/17 06:25 04/18/17 06:25 Laboratory Tests 04/17/17 04/17/17 04/17/17 18:50 18:51 20:59 WBC 7.4 D RBC 3.66 D Hgb 5.9 L* D Hct 20.2 L D MCV 55.1 L MCH 16.2 L MCHC 29.5 L RDW 19.4 H D Plt Count 208 D PT with INR 12.50 H INR 1.11 PTT (Actin FS) 28.6 Ferritin 1.289 L Total Bilirubin AST ALT Alkaline Phosphatase Total Protein Albumin TSH Stool Occult Blood 04/17/17 04/18/17 22:30 06:25 WBC RBC Hgb Hct MCV MCH MCHC RDW Plt Count PT with INR INR PTT (Actin FS) Ferritin Total Bilirubin 0.4 D AST 14 L ALT 13 Alkaline Phosphatase 78 Total Protein 6.5 Albumin 2.7 L TSH 4.21 H Stool Occult Blood Negative Problem List - Problems (1) Irregular periods/menstrual cycles Code(s): N92.6 - IRREGULAR MENSTRUATION, UNSPECIFIED (2) Anemia Code(s): D64.9 - ANEMIA, UNSPECIFIED Qualifiers: Anemia type: unspecified type Qualified Code(s): D64.9 - Anemia, unspecified (3) Headache Code(s): R51 - HEADACHE Qualifiers: Headache type: unspecified Headache chronicity pattern: episodic headache Intractability: not intractable Qualified Code(s): R51 - Headache Assessment/Plan 22 yrs , morbidly obese, severe Iron deff anemia irregular menstural cycle Wth prolonged periods sometimes , possible Anovulatory cycle due to obesity . Will need continued f/u with VP ACCOUNT DIRECTOR regarding menorrhagia Will order PO iron If inadequate response or intolerance will need IV iron check B12/folate Will request Dr. Graham consult--patient requesting bariatric surgery consult
[2017-04-18] MEDS ORDERED: ACETAMINOPHEN/CAFFEINE/BUTALBITAL 1 TAB PO PRN (22:00)
[2017-04-19 06:12] LABS: SERUM IRON SATURATION 2 % (15-55); TOTAL IRON BINDING CAPACITY 462 ug/dL (250-450); UIBC 451 ug/dL (131-425)
[2017-04-19 07:29] LABS: HEMATOCRIT 26.5 % (32.4-45.2); HEMOGLOBIN 8.2 GM/dL (10.7-15.3); MCHC 30.8 g/dl (32.0-36.0); MEAN CELL VOLUME 60.4 fl (80-96); PLATELET COUNT 192 K/MM3 (134-434); RBC 4.39 M/mm3 (3.60-5.2); RDW 28.4 % (11.6-15.6); WHITE BLOOD COUNT 10.4 K/mm3 (4.0-10.0)
[2017-04-19 07:30] LABS: ANION GAP 10 (8-16); BLOOD UREA NITROGEN 6 mg/dL (7-18); CALCIUM 8.6 mg/dL (8.5-10.1); CHLORIDE 105 mmol/L (98-107); CO2 25 mmol/L (21-32); GLUCOSE,RANDOM 75 mg/dL (74-106); MCH 18.6 pg (25.7-33.7); POTASSIUM 3.8 mmol/L (3.5-5.1); SODIUM 140 mmol/L (136-145)
[2017-04-19 07:34] LABS: ALK PHOS 92 U/L (45-117); BILIRUBIN,TOTAL 0.3 mg/dL (0.2-1.0); CREATININE 0.8 mg/dL (0.55-1.02); SGOT/AST 17 U/L (15-37); SGPT/ALT 15 U/L (12-78); TOT PROT 7.3 g/dl (6.4-8.2)
[2017-04-19 08:10] LABS: TRANSFERRIN 384 mg/dL (200-370)
--- NOTE | 2017-04-19 14:33 | PN ---
Teaching Attending Note Name of Resident: Amy Crook ATTENDING PHYSICIAN STATEMENT Time of evaluation: 12:35 PM I saw and evaluated the patient. I reviewed the resident's note and discussed the case with the resident. I agree with the resident's findings and plan as documented. SUBJECTIVE: Patient seen and examined, eating lunch, no headache or new complaints. OBJECTIVE: Vital Signs Period Temp Pulse Resp BP Sys/Holly Pulse Ox Last 24 Hr 97.6 F-98.5 F 99-108 20-20 120-154/66-99 100-100 Intake & Output 04/16/17 04/17/17 04/18/17 04/19/17 23:59 23:59 23:59 23:59 Intake Total 2630 Balance 2630 Weight 300 lb 316 lb 8 oz General: sitting in bed having lunch, no acute distress Neuro: AAOX3, facial symmetry, power 5/5, no gross deficits noted Active Medications Generic Name Dose Route Start Last Admin Trade Name Freq PRN Reason Stop Dose Admin Acetaminophen 650 mg 04/18/17 15:52 04/18/17 16:39 Tylenol - PO 650 mg Q6H PRN Administration HEADACHE Acetaminophen/Butalbital/Caffeine 1 tablet 04/18/17 22:00 Fioricet - PO Q6H PRN HEADACHE Laboratory Results - last 24 hr 04/17/17 04/19/17 04/19/17 21:00 06:25 06:25 WBC 10.4 H RBC 4.39 Hgb 8.2 L Hct 26.5 L MCV 60.4 L MCH 18.6 L MCHC 30.8 L RDW 28.4 H Plt Count 192 MPV 9.0 Platelet Comment No clumping noted Haptoglobin 229 H Sodium 140 Potassium 3.8 Chloride 105 Carbon Dioxide 25 Anion Gap 10 BUN 6 L Creatinine 0.8 Creat Clearance w eGFR > 60 Random Glucose 75 Calcium 8.6 Iron 11 L TIBC 462 H Iron Saturation 2 L Transferrin 384 H Total Bilirubin 0.3 D AST 17 ALT 15 Alkaline Phosphatase 92 Total Protein 7.3 Albumin 3.0 L Vitamin B12 Free T4 0.97 04/19/17 06:25 WBC RBC Hgb Hct MCV MCH MCHC RDW Plt Count MPV Platelet Comment Haptoglobin Sodium Potassium Chloride Carbon Dioxide Anion Gap BUN Creatinine Creat Clearance w eGFR Random Glucose Calcium Iron TIBC Iron Saturation Transferrin Total Bilirubin AST ALT Alkaline Phosphatase Total Protein Albumin Vitamin B12 498 Free T4 ASSESSMENT AND PLAN: 22 yof with morbid obesity, pseudotumor cerebri, anemia, metromenorrhagia admitted with headache and symptomatic anemia. Symptomatic anemia s/p 2 units PRBC, appropriate respnse Headaches, resolved H/o pseudotumor cerebri -morbid obesity Migraine Plan headache resolved. h/h stable. Heme/nurse obgyn input appreciated. TSH/T4 noted, t3 pending. D/c home today. Discussed with patient in detail about need for outpatient CBC monitoring, Diamond Driller Helper and neurology follow up, Thyroid follow up, iron supplementation and weight loss counseling provided. Patient relays full understanding of the findings, need for follow up and agrees to comply.
--- NOTE | 2017-04-19 14:53 | DS ---
Physical Exam: SUBJECTIVE: Patient seen and examined. No acute events overnight. Patient offers no new complaints. She denies headaches, dizziness, shortness of breath, chest pain, nausea, and vomiting. OBJECTIVE: Vital Signs Period Temp Pulse Resp BP Sys/Holly Pulse Ox Last 24 Hr 97.6 F-98.5 F 99-108 20-20 120-154/66-99 100-100 PHYSICAL EXAM GENERAL: Obese, The patient is awake, alert, and fully oriented, in no acute distress. HEAD: Normal with no signs of trauma. EYES: PERRL, extraocular movements intact, sclera anicteric, conjunctiva clear. No ptosis. ENT: oropharynx clear without exudates, moist mucous membranes. NECK: supple. LUNGS: Breath sounds equal, clear to auscultation bilaterally, no wheezes, no crackles, no accessory muscle use. HEART: tachy, regular rhythm, S1, S2 without murmur, rub or gallop. ABDOMEN: Soft, nontender, nondistended, normoactive bowel sounds, no guarding, no rebound. EXTREMITIES: 2+ pulses, warm, well-perfused, no edema. NEUROLOGICAL: Cranial nerves II through XII grossly intact. Normal speech, gait not observed. PSYCH: Normal mood, normal affect. SKIN: Warm, dry, normal turgor, no rashes or lesions noted LABS Laboratory Results - last 24 hr 04/17/17 04/19/17 04/19/17 21:00 06:25 06:25 WBC 10.4 H RBC 4.39 Hgb 8.2 L Hct 26.5 L MCV 60.4 L MCH 18.6 L MCHC 30.8 L RDW 28.4 H Plt Count 192 MPV 9.0 Platelet Comment No clumping noted Haptoglobin 229 H Sodium 140 Potassium 3.8 Chloride 105 Carbon Dioxide 25 Anion Gap 10 BUN 6 L Creatinine 0.8 Creat Clearance w eGFR > 60 Random Glucose 75 Calcium 8.6 Iron 11 L TIBC 462 H Iron Saturation 2 L Transferrin 384 H Total Bilirubin 0.3 D AST 17 ALT 15 Alkaline Phosphatase 92 Total Protein 7.3 Albumin 3.0 L Vitamin B12 Free T4 0.97 04/19/17 06:25 WBC RBC Hgb Hct MCV MCH MCHC RDW Plt Count MPV Platelet Comment Haptoglobin Sodium Potassium Chloride Carbon Dioxide Anion Gap BUN Creatinine Creat Clearance w eGFR Random Glucose Calcium Iron TIBC Iron Saturation Transferrin Total Bilirubin AST ALT Alkaline Phosphatase Total Protein Albumin Vitamin B12 498 Free T4 HOSPITAL COURSE: Date of Admission:04/17/17 22 yo morbidly obese F wtih PMH pseudotumor cerebri, migraines and anemia with irregular menses and mennorhagia presented with headache and was found with a Hgb 5.9. Patient was transfused 2 units of PRBC. Patient's symptoms resolved. Patient currently denies headaches, SOB, dizziness, chest pain, nausea and vomiting. Head CT unremarkable. Patient will follow up outpatient with relief salesperson. She has never followed with a relief salesperson. She will also follow up with PCP in 1 week for lab work. Patient was referred bariatric surgery because of morbid obesity. Date of Discharge: 04/19/17 Minutes to complete discharge: 35 Discharge Summary Reason For Visit: ANEMIA, HEADACHE Current Active Problems Anemia (Acute) Headache (Acute) Irregular periods/menstrual cycles (Acute) Morbid obesity with BMI of 50.0-59.9, adult (Acute) Pseudotumor cerebri (Acute) Condition: Improved - Instructions Diet, Activity, Other Instructions: You were here because of headaches that were likely caused by a drop in your blood cells in your body. The cause may be due to your irregular and heavy menstrual periods. You will need to start taking iron supplements on discharge. Please note that iron tablets can occasionally cause constipation or stomach upset. You are advised to start iron supplementation once daily and if tolerated well, can go up to twice daily and follow up with your doctor. You will need to follow up with your primary care physician in 1 week. You will need lab work drawn to see the status of your anemia when you see your primary care physician. (CBC) Your doctor will also need to follow your thyroid function lab work that we did in the hospital because your TSH level of 4.21 was slightly elevated with normal Free T4 and your total T3 is currently pending. Follow up with a neurologist in 2 weeks for your headaches. Follow up with a relief salesperson to further manage your anemia and menstural periods. You may be started on medications. We also referred you to a bariatric surgeon. We are very concerned about your current weight (BMI 52) and being overweight may cause significant problems. Follow UP: CBC in 1-2 weeks with your doctor. Follow up thyroid tests in 1-2 weeks and have your doctor follow up on blood results of "total T3". If you start feeling short of breath, have worsening headaches, become lightheaded, and chest pain call your doctor immediately or go to the nearest emergency room. Referrals: Tariq Graham MD [Staff Physician] - 2 Weeks Justino Brothers DO [Staff Physician] - 2 Weeks Melany Strauss MD [Staff Physician] - 1 Week Disposition: HOME - Home Medications Comprehensive Discharge Medication List: Ambulatory Orders Acetaminophen [Acetaminophen ER] 650 mg PO Q6H PRN #30 tablet.er 04/19/17 Ferrous Sulfate [Iron] 325 mg PO DAILY #30 tablet 04/19/17 This patient is new to me today: No Emergency Visit: Yes ED Registration Date: 04/17/17 Care time: The patient presented to the Emergency Department on the above date and was hospitalized for further evaluation of their emergent condition. Critical Care patient: No Total Critical Care Time (in minutes): 35 Critical Care Statement: The care of this patient involved high complexity decision making to prevent further life threatening deterioration of the patient 's condition and/or to evaluate & treat vital organ system(s) failure or risk of failure. - Discharge Referral Referred to [facility] No
[2017-04-19 15:25] VITALS: BP 134/83; PULSE 108; TEMP 98.1
== END 2017-04-19 15:38 | disposition home or self-care (01) | DRG 58 ==
LOC: JER 18:15 → JERBED 21:40 → OBSVTOIN 23:02 → J4W 04-18
PROVIDERS: ADMIT Internal Medicine; ATTEND Hospitalist
PROC: 30233N1 Transfusion of Nonautologous Red Blood Cells into Peripheral Vein, Percutaneous Approach (ICD-10-PCS; principal; 2017-04-18)
DX: G93.2 Benign intracranial hypertension (principal); D64.9 Anemia, unspecified; R51 Headache; E66.01 Morbid (severe) obesity due to excess calories; Z68.43 Body mass index [BMI] 50.0-59.9, adult; G43.909 Migraine, unspecified, not intractable, without status migrainosus; N92.6 Irregular menstruation, unspecified
CPT/HCPCS: 36415; 36430; 70450-TC; 76856-TC; 80053; 82272; 82607; 82728; 82747; 83010; 83540; 83550; 83615; 83735; 84100; 84439; 84443; 84466; 84480; 84703; 85014; 85025; 85027; 85610; 85730; 86850; 86900; 86901; 86922; 93005; 93010; 99285-25; G0378; J0131; J1756; J7030; P9038; P9058

== ENCOUNTER 2018-04-07 16:53 | Observation (INO) | payer OTHER ==
--- NOTE | 2018-04-07 17:01 | PDOC ---
Rapid Medical Evaluation Time Seen by Provider: 04/07/18 17:01 Medical Evaluation: Allergies Allergy/AdvReac Type Severity Reaction Status Date / Time No Known Allergies Allergy Verified 07/11/16 12:17 04/07/18 17:02 I performed a brief in-person evaluation. Chief complaint: Anemia - had outpatient labs yesterday. Recent admission for anemia requiring transfusion. Hx menorrhagia (menstruating currently). No SOB, palpitations, fatigue. Pertinent physical exam findings: In no distress, no abnormal v/s. I have ordered the following: Labs. Patient will proceed to the ED for further evaluation. Discharge Disposition - Diagnosis Anemia Qualifiers: Anemia type: unspecified type Qualified Code(s): D64.9 - Anemia, unspecified - Referrals - Patient Instructions - Post Discharge Activity
[2018-04-07 17:30] LABS: MONO % 5.8 % (3.8-10.2)
--- NOTE | 2018-04-07 17:30 | PDOC ---
History of Present Illness - General Chief Complaint: Revisit, Lab Variance Stated Complaint: ANEMIA Time Seen by Provider: 04/07/18 17:01 - History of Present Illness Initial Comments: 23yo F with idiopathic intracranial HTN, migraine and obesity sent by her primary care physician for low hemoglobin. Patient reports heavy menstrual periods and is currently on day 5 of her period which usually lasts 7 days. She has been using about 1 pad per hour which is typical for her. Patient has been admitted for low hemoglobin in the past, in 2016 and 2018. Denies history of bleeding disorder or hemoptysis. She has never seen an auto repair technician specialist though she says she has been told to see one in the past. No fevers, chills, headache, shortness of breath, chest pain, weakness, melena, bleeding, or easy bruising. PCP: Dr. Rolan Devlin Past History - Past Medical History Allergies/Adverse Reactions: Allergies Allergy/AdvReac Type Severity Reaction Status Date / Time No Known Allergies Allergy Verified 04/07/18 17:01 Home Medications: Ambulatory Orders Ferrous Sulfate [Iron] 325 mg PO DAILY #30 tablet 04/21/17 Anemia: Yes Asthma: No COPD: No Diabetes: No HTN: Yes Seizures: No - Immunization History Immunization Up to Date: Yes - Suicide/Smoking/Psychosocial Hx Smoking History: Never smoked Have you smoked in the past 12 months: No Hx Alcohol Use: No Drug/Substance Use Hx: No Substance Use Type: None Hx Substance Use Treatment: No Review of Systems - Review of Systems Comments:: Constitutional: no fever, no chills HEENT: no throat pain, no dysphagia Cardiovascular: no chest pain, no palpitations Respiratory: no cough, no shortness of breath Gastrointestinal: no abdominal pain, no nausea Genitourinary: no dysuria, +menorrhagia Musculoskeletal: no myalgia, no arthralgia Skin: no rash, no itching Neurologic: no headache, no dizziness *Physical Exam - Vital Signs Last Vital Signs Temp Pulse Resp BP Pulse Ox 99 F 107 H 20 151/82 100 04/07/18 16:54 04/07/18 16:54 04/07/18 16:54 04/07/18 16:54 04/07/18 16:54 - Physical Exam Comments: General: Awake, alert, and fully oriented, in no acute distress Head: No signs of trauma Eyes: EOMI, sclera anicteric ENT: Moist mucus membranes Neck: Normal ROM, supple Lungs: Lungs clear, Normal breath sounds Cardio: Regular rhythm, S1 and S2 present Abdomen: Soft, nontender. No guarding, no rebound, no masses Extremities: Normal range of motion, Distal pulses present SKIN: Warm, Dry, normal turgor Neurologic: Cranial nerves II through XII grossly intact. Normal speech Moderate Sedation - Procedure Monitoring Vital Signs: Procedure Monitoring Vital Signs Temperature 99 F 04/07/18 16:54 Pulse Rate 107 H 04/07/18 16:54 Respiratory Rate 20 04/07/18 16:54 Blood Pressure 151/82 04/07/18 16:54 O2 Sat by Pulse Oximetry (%) 100 04/07/18 16:54 ED Treatment Course - LABORATORY CBC & Chemistry Diagram: 04/08/18 07:19 04/07/18 17:12 Medical Decision Making - Medical Decision Making 23yo F with idiopathic intracranial HTN, migraine and obesity sent by her primary care physician for low hemoglobin. Dr. Devlin's paperwork shows microcytic anemia with low hgb (6.2) MCV (57.1) Anemia is likely due to menorrhagia. Patient has not followed up with auto repair technician and has never been on hormones to control her heavy periods. Per chart review, patient has been transfused at this hospital before, in Mar 2017 and January 2016 Repeat hgb=6.3 2 units PRBC's ordered, patient consent obtained Plan to admit 04/07/18 18:25 Patient signed out to Dr. Guadalupe *DC/Admit/Observation/Transfer Diagnosis at time of Disposition: Anemia Qualifiers: Anemia type: unspecified type Qualified Code(s): D64.9 - Anemia, unspecified - Discharge Dispostion Condition at time of disposition: Guarded Decision to Admit order: Yes - Referrals - Patient Instructions - Post Discharge Activity
[2018-04-07 17:36] LABS: BASO % 1.3 % (0-2.0); EOS % 0.3 % (0-4.5); HEMATOCRIT 21.9 % (32.4-45.2); LYMPH % 30.3 % (8-40); MCHC 28.7 g/dl (32.0-36.0); MEAN PLT VOLUME 9.2 fl (7.5-11.1); NEUT % 62.3 % (42.8-82.8); RBC 4.05 M/mm3 (3.60-5.2); RDW 21.6 % (11.6-15.6); WHITE BLOOD COUNT 7.2 K/mm3 (4.0-10.0)
[2018-04-07 17:37] LABS: HEMOGLOBIN 6.3 GM/dL (10.7-15.3); MCH 15.5 pg (25.7-33.7)
--- NOTE | 2018-04-07 17:39 | PDOC ---
Attending Attestation - Resident Resident Name: Joann De Santiago - ED Attending Attestation I have performed the following: I have examined & evaluated the patient, The case was reviewed & discussed with the resident, I agree w/resident's findings & plan, Exceptions are as noted - HPI HPI: 04/07/18 18:25 23 year old female patient with a history of obesity, pseudotumor cerebri, menorrhagia, iron-deficiency anemia with previous transfusions presents with anemia. The patient denies any lightheadedness, chest pain, shortness of breath. Pt's baseline Hgb appears to be ~8. Pt reports she is on iron pills, taking it intermitently. Denies rectal bleeding but does report heavy vaginal bleeding, which is normal for her. She states that she goes through 2 pads per hour x 7 days. Pt was undergoing outpatient routine blood work and noted her Hgb to be 6.2 - Physicial Exam PE: 04/07/18 18:27 GENERAL: Awake, alert, and fully oriented, in no acute distress HEAD: No signs of trauma EYES: EOMI, sclera anicteric, conjunctiva clear ENT: Auricles normal inspection, hearing grossly normal, nares patent, oropharynx clear without exudates. Moist mucosa NECK: Normal ROM, supple LUNGS: Breath sounds equal, clear to auscultation bilaterally. No wheezes, and no crackles HEART: Regular rate and rhythm, normal S1 and S2, no murmurs, rubs or gallops EXTREMITIES: Normal range of motion, no edema. No clubbing or cyanosis. No cords, erythema, or tenderness NEUROLOGICAL: Cranial nerves II through XII grossly intact. Normal speech SKIN: Warm, Dry, normal turgor, no rashes or lesions noted. - Medical Decision Making 04/07/18 18:29 Vital Signs Temp Pulse Resp BP Pulse Ox 99 F 107 H 20 151/82 100 04/07/18 16:54 04/07/18 16:54 04/07/18 16:54 04/07/18 16:54 04/07/18 16:54 Hgb here 6.3 Anemia likely 2/2 menorrhagia. Pt not on OCPs. Pt encouraged to follow up with MAT REPAIRER as an outpatient in regards to potentially starting OCPs. Will transfuse PRBCs. Admit
[2018-04-07 17:43] LABS: INR 1.12 (0.83-1.09); PROTHROMBIN TIME (PATIENT) 13.2 SEC (9.7-13.0)
[2018-04-07 17:51] LABS: BLOOD UREA NITROGEN 6 mg/dL (7-18); CALCIUM 8.7 mg/dL (8.5-10.1); CHLORIDE 109 mmol/L (98-107); CO2 27 mmol/L (21-32); CREATININE 0.7 mg/dL (0.55-1.3); GLUCOSE,RANDOM 74 mg/dL (74-106); SODIUM 142 mmol/L (136-145)
[2018-04-07 17:52] LABS: ANION GAP 5 MMOL/L (8-16); POTASSIUM 4.2 mmol/L (3.5-5.1)
[2018-04-07 18:29] LABS: ANISOCYTOSIS 3+; OVALOCYTE 1+; PLATELET COUNT 249 K/MM3 (134-434); PLATELET ESTIMATE ADEQUATE; TARGET CELLS 1+
--- NOTE | 2018-04-07 19:14 | PN ---
Teaching Attending Note Name of Resident: Johnathan John ATTENDING PHYSICIAN STATEMENT I saw and evaluated the patient. I reviewed the resident's note and discussed the case with the resident. I agree with the resident's findings and plan as documented. SUBJECTIVE: Patient is a 23 year old woman with PMH of idiopathic intracranial HTN, migraine and morbid obesity sent by her primary care physician for low hemoglobin. Patient reports heavy menstrual periods and is currently on day 5 of her period which usually lasts 7 days. She has been using about 1 pad per hour which is typical for her. Patient has been admitted for low hemoglobin in the past, in 2016 and 2018. Denies history of bleeding disorder or hemoptysis. She has never seen an MILITARY EXCHANGE WIRELESS MANAGER specialist though she says she has been told to see one in the past. No fevers, chills, headache, shortness of breath, chest pain, weakness, melena, bleeding, or easy bruising. OBJECTIVE: Alert Vital Signs Period Temp Pulse Resp BP Sys/Holly Pulse Ox Last 24 Hr 99 F 107 20 151/82 100 HEENT: No Jaundice, eye redness or discharge, PERRLA, EOMI. Normocephalic, atraumatic. External ears are normal and hearing is grossly intact. No nasal discharge. Neck: Supple, nontender. No palpable adenopathy or thyromegaly. No JVD Chest: Good effort. Clear to auscultation and percussion. Heart: Regular. No S3, rub or murmur Abdomen: Not distended, soft, nontender and no HSM. No rebound or guarding. Normoactive bowel sounds. Ext: Peripheral pulses intact. No leg edema. Skin: Warm and dry. No petechiae, rash or ecchymosis. Neuro: Alert. Oriented x3. CN 2-12 grossly intact. Sensation grossly intact in all four extremities and DTR are symmetric. Home Medications Medication Instructions Recorded Ferrous Sulfate [Iron] 325 mg PO DAILY #30 tablet 04/21/17 Abnormal Lab Results 04/07/18 04/07/18 04/07/18 17:12 17:12 17:12 Hgb 6.3 L* Hct 21.9 L D MCV 54.0 L MCH 15.5 L D MCHC 28.7 L RDW 21.6 H PT with INR 13.20 H INR 1.12 H Chloride 109 H Anion Gap 5 L BUN 6 L Crossmatch 04/07/18 17:12 Hgb Hct MCV MCH MCHC RDW PT with INR INR Chloride Anion Gap BUN Crossmatch See Detail ASSESSMENT AND PLAN: 1. Severe Low MCV Anemia - Has had menorrhagia for a while. Likely related to obesity and deranged sex hormone metabolism in adipose tissue. Will confirm iron deficiency and give IV iron tomorrow after PRBC transfusion today. Get pelvic sonogram to rule out fibroids and also get hemoglobin electrophoresis. Consult ANIMAL SITTER. Upon discharge, should get "high qaulity" oral iron preparations ( Chromagen Forte, Niferex, etc), not "ferrous sulphate". 2. Morbid Obesity - Will provide patient all the necessary assistance, counseling and positive reinforcement to facilitate weight loss. Consult jawbone breaker. Unclear why she is not on any medication for idiopathic intracranial hypertension. 3. Hypertension?? - Will repeat BP measurements with right-size cuff to make sure she does not have undiagnosed hypertension. Nonpharmacologic measures to control hypertension like weight loss, salt restriction and exercise discussed. 4. DVT prophylaxis - Lovenox 40 mg SQ q 12h 5. Advance directives - Full code
--- NOTE | 2018-04-07 21:38 | HP ---
CHIEF COMPLAINT: Sent in by PCP for low Hgb PCP: Dr. Rolan Devlin HISTORY OF PRESENT ILLNESS: 23 y/o F w/PMH of idiopathic intracranial HTN, migraines, obesity presents to the ER after being sent in by PCP for low hemoglobin. Pt has been having heavy periods and is in day 5 of 7 of her currently and is using 1 pad per hour which is her normal amount. She was admitted for low hgb twice before, once in 2016 and once last year. She has never seen role player. She denies dizziness, light- headedness, CP, KIRBY, palpitations, SOB, GRANT, abd pain, N/V/F/C, LE edema. Hgb here was 6.3. She is non-compliant with her iron therapy. Is considering bariatric surgery. ER course was notable for: (1) 2 units PRBC (2) (3) PAST MEDICAL HISTORY: idiopathic intracranial HTN, migraines, obesity PAST SURGICAL HISTORY: no surgeries Social History: Smoking: denies Alcohol: denies Drugs: denies Family History: n-c Allergies No Known Allergies Allergy (Verified 04/07/18 17:01) HOME MEDICATIONS: Home Medications Medication Instructions Recorded Ferrous Sulfate [Iron] 325 mg PO DAILY #30 tablet 04/21/17 REVIEW OF SYSTEMS CONSTITUTIONAL: Absent: fever, chills, diaphoresis, generalized weakness HEENT: Absent: visual changes CARDIOVASCULAR: Absent: chest pain, palpitations, irregular heart rate, lightheadedness, peripheral edema RESPIRATORY: Absent: cough, shortness of breath, dyspnea with exertion GASTROINTESTINAL: Absent: abdominal pain, nausea, vomiting GENITOURINARY: Absent: dysuria, frequency,hematuria NEUROLOGIC: Absent: headache, dizziness PHYSICAL EXAMINATION Vital Signs - 24 hr 04/07/18 04/07/18 04/07/18 16:54 20:00 20:35 Temperature 99 F 98.8 F 99.0 F Pulse Rate 107 H Pulse Rate [ 108 H Radial] Respiratory 20 22 H Rate Blood Pressure 151/82 Blood Pressure 128/77 [Left Arm] O2 Sat by Pulse 100 100 Oximetry (%) 04/07/18 20:55 Temperature 98.9 F Pulse Rate Pulse Rate [ 109 H Radial] Respiratory 22 H Rate Blood Pressure Blood Pressure 124/77 [Left Arm] O2 Sat by Pulse 100 Oximetry (%) GENERAL: Awake, alert, and fully oriented, in no acute distress. HEAD: Normal with no signs of trauma. EYES: extraocular movements intact, sclera anicteric, pale conjunctiva EARS, NOSE, THROAT: Ears normal, nares patent, pale lips NECK: Normal range of motion, supple LUNGS: Breath sounds equal, clear to auscultation bilaterally. HEART: +systolic murmur. Regular rate and rhythm, normal S1 and S2. ABDOMEN: Soft, obese, nontender, not distended, normoactive bowel sounds. LOWER EXTREMITIES: warm, well-perfused. No peripheral edema. NEUROLOGICAL: Cranial nerves II-XII grossly intact. Normal speech. Gait not observed. PSYCHIATRIC: Cooperative. Good eye contact. Appropriate mood and affect. SKIN: Warm, dry Laboratory Results - last 24 hr 04/07/18 04/07/18 04/07/18 17:12 17:12 17:12 WBC 7.2 RBC 4.05 Hgb 6.3 L* Hct 21.9 L D MCV 54.0 L MCH 15.5 L D MCHC 28.7 L RDW 21.6 H Plt Count 249 D MPV 9.2 Absolute Neuts (auto) 4.5 Neutrophils % 62.3 Lymphocytes % 30.3 Monocytes % 5.8 Eosinophils % 0.3 D Basophils % 1.3 Nucleated RBC % 0 Hypochromia 3+ Platelet Estimate Adequate Platelet Comment No clumping noted Polychromasia 1+ Anisocytosis 3+ Microcytosis 3+ Target Cells 1+ Ovalocytes 1+ PT with INR 13.20 H INR 1.12 H Sodium Potassium Chloride Carbon Dioxide Anion Gap BUN Creatinine Creat Clearance w eGFR Random Glucose Calcium Serum , Qual Negative Blood Type Antibody Screen Crossmatch 04/07/18 04/07/18 17:12 17:12 WBC RBC Hgb Hct MCV MCH MCHC RDW Plt Count MPV Absolute Neuts (auto) Neutrophils % Lymphocytes % Monocytes % Eosinophils % Basophils % Nucleated RBC % Hypochromia Platelet Estimate Platelet Comment Polychromasia Anisocytosis Microcytosis Target Cells Ovalocytes PT with INR INR Sodium 142 Potassium 4.2 Chloride 109 H Carbon Dioxide 27 Anion Gap 5 L BUN 6 L Creatinine 0.7 Creat Clearance w eGFR > 60 Random Glucose 74 Calcium 8.7 Serum , Qual Blood Type O POSITIVE Antibody Screen Negative Crossmatch See Detail ASSESSMENT/PLAN: 23 y/o F w/PMH of idiopathic intracranial HTN, migraines, obesity presents to the ER after being sent in by PCP for low hemoglobin. Admitted for low Hgb requiring transfusions. -Severe anemia secondary to menorrhagia -2 units PRBC ordered, recheck CBC after transfusions -Iron studies -global compensation manager consult as pt has poor outpatient f/u with role player -IV venofir 500 mg x2 tomorrow -Obesity -Weight loss, exercise, diet counseling given -Pt is setting up bariatric surgery as outpt -DVT ppx -EAM, lovenox -FEN -No fluids -Monitor electrolytes -Regular diet -Dispo: obs for transfusions Visit type - Emergency Visit Emergency Visit: Yes ED Registration Date: 04/07/18 Care time: The patient presented to the Emergency Department on the above date and was hospitalized for further evaluation of their emergent condition. - New Patient This patient is new to me today: Yes Date on this admission: 04/07/18 - Critical Care Critical Care patient: No
[2018-04-07 22:12] VITALS: BMI 48.4
[2018-04-08] MEDS ORDERED: IRON SUCROSE INJECTION 500 MG in SODIUM CHLORIDE 225 ML IVPB ONE ×2 (08:00→10:00)
[2018-04-08 09:28] LABS: HEMATOCRIT 26.2 % (32.4-45.2); HEMOGLOBIN 8.2 GM/dL (10.7-15.3); MCHC 31.3 g/dl (32.0-36.0); MEAN CELL VOLUME 61.5 fl (80-96); MEAN PLT VOLUME 9.6 fl (7.5-11.1); PLATELET COUNT 204 K/MM3 (134-434); RBC 4.26 M/mm3 (3.60-5.2)
[2018-04-08 09:48] LABS: MCH 19.3 pg (25.7-33.7)
[2018-04-08] MEDS ORDERED: ENOXAPARIN NA (PORCINE) 40 MG/0.4 ML DISP.SYRIN SQ SCH ×2 (10:00)
[2018-04-08 13:47] VITALS: BP 136/87; PULSE 104; TEMP 98
--- NOTE | 2018-04-08 14:00 | DS ---
Physical Exam: SUBJECTIVE: Patient seen and examined, menstrual bleed ongoing but better. no dizziness, dyspnea or new concerns. OBJECTIVE: Vital Signs Period Temp Pulse Resp BP Sys/Holly Pulse Ox Last 24 Hr 97.9 F-99.0 F 86-109 18-22 110-151/56-87 98-100 PHYSICAL EXAM GENERAL: The patient is awake, alert, and fully oriented, in no acute distress, morbidly obese female in no acute distress in bed. HEAD: Normal with no signs of trauma. EYES: PERRL, extraocular movements intact, sclera anicteric, conjunctiva clear. Pallor ENT: Ears normal, nares patent, oropharynx clear without exudates, moist mucous membranes. NECK: Trachea midline, full range of motion, supple. LUNGS: Breath sounds equal, clear to auscultation bilaterally, no wheezes, no crackles, no accessory muscle use. HEART: Regular rate and rhythm, S1, S2 ABDOMEN: Soft, obese, non tender, no suprapubic or CVA tenderness EXTREMITIES: 2+ pulses, warm, well-perfused, no edema. NEUROLOGICAL: Cranial nerves II through XII grossly intact. Normal speech, gait not observed. PSYCH: Normal mood, normal affect. SKIN: Warm, dry, normal turgor, no rashes or lesions noted. LABS Laboratory Results - last 24 hr 04/07/18 04/07/18 04/07/18 17:12 17:12 17:12 WBC 7.2 RBC 4.05 Hgb 6.3 L* Hct 21.9 L D MCV 54.0 L MCH 15.5 L D MCHC 28.7 L RDW 21.6 H Plt Count 249 D MPV 9.2 Absolute Neuts (auto) 4.5 Neutrophils % 62.3 Lymphocytes % 30.3 Monocytes % 5.8 Eosinophils % 0.3 D Basophils % 1.3 Nucleated RBC % 0 Hypochromia 3+ Platelet Estimate Adequate Platelet Comment No clumping noted Polychromasia 1+ Anisocytosis 3+ Microcytosis 3+ Target Cells 1+ Ovalocytes 1+ PT with INR 13.20 H INR 1.12 H Sodium Potassium Chloride Carbon Dioxide Anion Gap BUN Creatinine Creat Clearance w eGFR Random Glucose Calcium Serum , Qual Negative Blood Type Antibody Screen Crossmatch 04/07/18 04/07/18 04/08/18 17:12 17:12 07:19 WBC 6.0 RBC 4.26 Hgb 8.2 L Hct 26.2 L D MCV 61.5 L D MCH 19.3 L D MCHC 31.3 L RDW 33.0 H Plt Count 204 MPV 9.6 Absolute Neuts (auto) Neutrophils % Lymphocytes % Monocytes % Eosinophils % Basophils % Nucleated RBC % Hypochromia Platelet Estimate Platelet Comment Polychromasia Anisocytosis Microcytosis Target Cells Ovalocytes PT with INR INR Sodium 142 Potassium 4.2 Chloride 109 H Carbon Dioxide 27 Anion Gap 5 L BUN 6 L Creatinine 0.7 Creat Clearance w eGFR > 60 Random Glucose 74 Calcium 8.7 Serum , Qual Blood Type O POSITIVE Antibody Screen Negative Crossmatch See Detail Pelvis/transvaginal US negative for concerns HOSPITAL COURSE: Date of Admission:04/07/18 Date of Discharge: 04/08/18 Minutes to complete discharge: 35 Discharge Summary Reason For Visit: ANEMIA Current Active Problems Anemia (Acute) Hospital Course: 23 yof with PMHx of idiopathic intracranial HTN, migraine, morbid obesity, long standing h/o menorrhagia with no prior gynecology follow up, sent in by PCP with Hb of 6.6. Patient reported heavy periods last 1 week for a long time. She was otherwise asymptomatic. She received 2 units PRBC with appropriate response. Her hemoglobin on discharge is 8.2. She also received a transvaginal/ pelvis Ultrasound that was negative for concerns. She is counseled on compliance with iron supplementation, serial CBC monitoring and outpatient program control analyst follow up. She will be discharged in stable condition. Condition: Stable - Instructions Diet, Activity, Other Instructions: You were admitted with anemia likely from heavy menstrual bleed. You received 2 units of blood with improvement in your blood counts. You had transvaginal/pelvic ultrasound that was negative for concerns. Follow Up; You are strongly advised to follow up with Ob-program control analyst next week to discuss further plan (Dr. Gonzalez's information provided) Blood work CBC (Complete Blood count) in 1 week with your doctor. You will need close monitoring of your blood counts with your doctor. MEDICATIONS; Take iron pills as directed. Advise to maintain high fiber diet and maintain bowel regimen while on the medication . If you notice worsening or severe bleed that does not stop, trouble breathing, weakness, dizziness, or any new concerns, please call 911 or come to ED immediately. Referrals: Kapil Devlin MD [Non Staff, Medical] - 1 Week Mickey Gonzalez MD [Staff Physician] - 1 Week Disposition: HOME - Home Medications Comprehensive Discharge Medication List: Ambulatory Orders Iron/C/Folate 6/B12/Zn/Stomach [Chromagen Softgel] 1 each PO BID #60 capsule This patient is new to me today: Yes Date on this admission: 04/08/18 Emergency Visit: Yes ED Registration Date: 04/07/18 Care time: The patient presented to the Emergency Department on the above date and was hospitalized for further evaluation of their emergent condition. Critical Care patient: No - Discharge Referral Referred to [facility] Med P.C.: No
[2018-04-09 08:08] LABS: SERUM IRON SATURATION 12 % (15-55); TOTAL IRON BINDING CAPACITY 462 ug/dL (250-450); UIBC 408 ug/dL (131-425)
== END 2018-04-08 16:46 | disposition home or self-care (01) ==
LOC: JER 16:53 → JERBED 18:28 → J7W 21:34
PROVIDERS: ADMIT Internal Medicine; ATTEND Hospitalist
PROC: 30233N1 Transfusion of Nonautologous Red Blood Cells into Peripheral Vein, Percutaneous Approach (ICD-10-PCS; principal; 2018-04-07)
DX: D64.9 Anemia, unspecified (principal); I10 Essential (primary) hypertension; G93.2 Benign intracranial hypertension; E66.01 Morbid (severe) obesity due to excess calories; Z68.42 Body mass index [BMI] 45.0-49.9, adult
CPT/HCPCS: 36415; 36430; 36511; 76830-TC; 76856-TC; 80048; 83540; 83550; 84466; 84703; 85025; 85027; 85610; 86850; 86900; 86901; 86922; 99284-25; G0378; P9038; P9058

== ENCOUNTER 2019-03-21 16:05 | Inpatient (IN) | payer OTHER ==
--- NOTE | 2019-03-21 16:33 | PDOC ---
Rapid Medical Evaluation Time Seen by Provider: 03/21/19 16:29 Medical Evaluation: Allergies Allergy/AdvReac Type Severity Reaction Status Date / Time No Known Allergies Allergy Verified 03/21/19 16:30 03/21/19 16:31 CC: sent for anemia- Hgb-4.2, Plt-100. LMP- 2-3 weeks ago. Denies active bleeding. PE: HR-115. Pallor present. Orders: anemia w/u Patient will proceed to the ED for further evaluation. Discharge Disposition - Diagnosis Anemia - Referrals - Patient Instructions - Post Discharge Activity
[2019-03-21 17:53] LABS: IRON SERUM 14 ug/dL (50-175); TOTAL IRON BINDING CAPACITY 569 ug/dL (250-450)
[2019-03-21 17:54] LABS: BASO % 1.1 % (0-2.0); EOS % 0.5 % (0-4.5); HEMATOCRIT 18.1 % (32.4-45.2); LYMPH % 22.5 % (8-40); MEAN PLT VOLUME 11.1 fl (7.5-11.1); MONO % 8.6 % (3.8-10.2); NEUT % 67.3 % (42.8-82.8); PLATELET COUNT 114 K/MM3 (134-434); RBC 3.34 M/mm3 (3.60-5.2); RDW 31.2 % (11.6-15.6); WHITE BLOOD COUNT 7.1 K/mm3 (4.0-10.0)
[2019-03-21 18:03] LABS: HEMOGLOBIN 4.7 GM/dL (10.7-15.3)
[2019-03-21 18:04] LABS: ALBUMIN 3.4 g/dl (3.4-5.0); BILIRUBIN,TOTAL 0.3 mg/dL (0.2-1); CALCIUM 8.9 mg/dL (8.5-10.1); CREATININE 1.1 mg/dL (0.55-1.3); POTASSIUM 3.6 mmol/L (3.5-5.1); TOT PROT 7.7 g/dl (6.4-8.2)
[2019-03-21 18:10] LABS: LDH 225 U/L (84-246)
--- NOTE | 2019-03-21 18:59 | PDOC ---
History of Present Illness - General Chief Complaint: Abnormal Lab Results (Outside) Stated Complaint: EVALUATION Time Seen by Provider: 03/21/19 16:29 - History of Present Illness Initial Comments: Lashonda Leggett is a 24yo woman with a PMH of iron-deficiency anemia secondary to heavy menstrual bleeding, prior transfusiosn in 2016, 2017, and 2019, who presents with anemia with hgb 4.2 on routine labs on her PMD. She states that she was following up for her known anemia, and she was [facility]. She denies any fatigue, palpitatinos, chest pain, difficulty breathing, lightheadedness or other symptoms in addition to denying any bleeding, bruising, melena, hematochezia, or other sources of bleeding. She does endorse continued heavy periods, lasting about 7 days and changing one pad per hour. She never followed up with gynecology after her prior ED visit requiring transfusion, and she stopped taking her iron supplement "about a year go." Past History - Past Medical History Allergies/Adverse Reactions: Allergies Allergy/AdvReac Type Severity Reaction Status Date / Time No Known Allergies Allergy Verified 03/21/19 16:30 Home Medications: Ambulatory Orders Iron/C/Folate 6/B12/Zn/Stomach [Chromagen Softgel] 1 each PO BID #60 capsule Anemia: Yes Asthma: No COPD: No Diabetes: No HTN: Yes Seizures: No - Immunization History Immunization Up to Date: Yes - Psycho Social/Smoking Cessation Hx Smoking History: Never smoked Have you smoked in the past 12 months: No Hx Alcohol Use: No Drug/Substance Use Hx: No Substance Use Type: None Hx Substance Use Treatment: No Review of Systems - Review of Systems Comments:: General: No fevers, no chills, no weight or appetite change, no malaise HEENT: No changes in vision, no changes in hearing, no congestion, no sore throat CV: No chest pain, no palpitations, no LE edema Pulm: No SOB, no cough, no wheezing GI: No nausea or vomiting, no change in bowel habits, no melena : No frequency, no urgency, no dysuria Musc: No back pain, no joint swelling, no recent injury Skin: No rash, no lesions, no erythema Endo: No excessive thirst, no heat/cold intolerance Heme: No unusual bruising or bleeding, no swollen glands Neuro: No syncope, no numbness/tingling, no focal weakness Vasc: No claudication Psych: No recent change in mood, no SI or HI *Physical Exam - Vital Signs Last Vital Signs Temp Pulse Resp BP Pulse Ox 97.9 F 115 H 18 132/68 100 03/21/19 16:30 03/21/19 16:30 03/21/19 16:30 03/21/19 16:30 03/21/19 16:30 - Physical Exam General: Comfortable, no acute distress HEENT: Atraumatic, PERRL, EOMI, MMM, voice normal, normal neck ROM Cards: RRR, no murmur appreciated Pulm: Comfortable on room air, clear to auscultation bilaterally Abd: Soft, nontender, nondistended Ext: Atraumatic. No LE edema. ROM intact. WWP Skin: Normal color, no rashes or lesions Neuro: A&Ox3, CN grossly intact, normal speech, motor/sensory grossly intact and symmetric Psych: Mood appropriate to situation ED Treatment Course - LABORATORY CBC & Chemistry Diagram: 03/21/19 16:57 03/21/19 16:57 - ADDITIONAL ORDERS Additional order review: Laboratory Results 03/21/19 03/21/19 03/21/19 16:57 16:57 16:57 Sodium 142 Potassium 3.6 Chloride 109 H Carbon Dioxide 26 Anion Gap 7 L BUN 5.0 L Creatinine 1.1 Est GFR (CKD-EPI)AfAm 82.53 Est GFR (CKD-EPI)NonAf 71.21 Random Glucose 80 Calcium 8.9 Iron 14 L TIBC 569 H Iron Saturation 2 L Unsaturated IBC 555 H Ferritin 1.4 L Total Bilirubin 0.3 AST 14 L ALT 14 Alkaline Phosphatase 85 LD Total 225 Total Protein 7.7 Albumin 3.4 TSH 1.77 Blood Type O POSITIVE Antibody Screen Negative Crossmatch See Detail 03/21/19 16:57 RBC 3.34 L MCV 54.0 L MCHC 26.0 L RDW 31.2 H MPV 11.1 D Neutrophils % 67.3 Lymphocytes % 22.5 D Monocytes % 8.6 Eosinophils % 0.5 Basophils % 1.1 Medical Decision Making - Medical Decision Making 03/21/19 18:58 Lashonda Leggett is a 24yo woman with a PMH of iron-deficiency anemia secondary to heavy menstrual bleeding, prior transfusiosn in 2016, 2018, and 2019, who presents with asymptomatic anemia with hgb 4.2 on routine labs on her PMD. She states that she was told to see gynecology and take iron supplements at home, but she has not done so. - Reports hgb 4.2 at her PMD. Most likely known iron-deficiency anemia as pt was lost to follow up and has not been taking her iron - CBC, CMP, iron studies, T&S ordered in E - Will likely need transfusion after confirming anemia 03/21/19 20:18 - HGb confirmed 4.7 - 3u pRBCs ordered - Discussed risks/benefits of transfusion at length w/ Ms Leggett and her mother. Both understand. Consent for transfusion obtained in writing. 03/21/19 21:30 - Patient signed out to Dr Delio Edwards. Will be admitted on Dr Brown's service for additional management Discussed with Dr Chris Leung PGY2 Discharge - Discharge Information Problems reviewed: Yes Clinical Impression/Diagnosis: Anemia Qualifiers: Anemia type: iron deficiency Iron deficiency anemia type: unspecified iron deficiency Qualified Code(s): D50.9 - Iron deficiency anemia, unspecified Condition: Stable - Admission Yes - Follow up/Referral - Patient Discharge Instructions - Post Discharge Activity
[2019-03-21 19:21] LABS: INR 1.16 (0.83-1.09); PROTHROMBIN TIME (PATIENT) 13.7 SEC (9.7-13.0)
[2019-03-21 19:23] LABS: ACTIVATED PTT 26.9 SECONDS (25.2-36.5)
--- NOTE | 2019-03-21 19:35 | PDOC ---
Attending Attestation - Resident Resident Name: Irma Leung - ED Attending Attestation I have performed the following: I have examined & evaluated the patient, The case was reviewed & discussed with the resident, I agree w/resident's findings & plan - HPI HPI: 03/21/19 22:19 see resident hpi - Physicial Exam PE: 03/21/19 22:19 agree with resident exam - Medical Decision Making 03/21/19 22:19 24-year-old female with severe anemia on outpatient labs likely due to menorrhagia Transfusion ordered We will admit for observation
--- NOTE | 2019-03-21 20:53 | PN ---
Teaching Attending Note Name of Resident: Delio Edwards ATTENDING PHYSICIAN STATEMENT I saw and evaluated the patient. I reviewed the resident's note and discussed the case with the resident. I agree with the resident's findings and plan as documented. SUBJECTIVE: Patient is a 24 year old womna with a PMH of Iron-deficiency anemia ?secondary to heavy menstrual bleeding, Prior PRBC transfusions (2016, 2018, 2019) and Morbid obesity who presents with anemia - Hb 4.2 g/dL on routine labs done by her PCP. She states that she was following up for her known anemia, and she was told to come to the hospital for transfusion. She denies any fatigue, palpitatinos, chest pain, difficulty breathing or lightheadedness. Denies rectal bleeding, bruising or melena. She does have continued heavy periods, lasting about 7 days and changing one pad per hour. She never followed up with Gynecology after her prior ER visit requiring transfusion, and she stopped taking her iron supplement "about a year go." LMP was 3 weeks ago. Denies alcohol, tobacco or illicit drug use. No sick contacts or recent travels. OBJECTIVE: Alert Vital Signs Period Temp Pulse Resp BP Sys/Holly Pulse Ox Last 24 Hr 97.9 F 115 18 132/68 100 HEENT: No Jaundice, eye redness or discharge, PERRLA, EOMI. Normocephalic, atraumatic. External ears are normal and hearing is grossly intact. No nasal discharge. Neck: Supple, nontender. No palpable adenopathy or thyromegaly. No JVD Chest: Good effort. Clear to auscultation and percussion. Heart: Regular. No S3 or rub; 2/6 JENNI. Abdomen: Not distended, soft, nontender and no HSM. No rebound or guarding. Normal bowel sounds. Ext: Peripheral pulses intact. No leg edema. Skin: Warm and dry. No petechiae, rash or ecchymosis. Neuro: Alert. Oriented x3. CN 2-12 grossly intact. Sensation grossly intact in all four extremities and DTR are symmetric. Psych: Appropriate mood and affect. Good insight. Current Medications Generic Name Dose Route Start Last Admin Trade Name Freq PRN Reason Stop Dose Admin Ferrous Sulfate 325 mg 03/22/19 08:00 Feosol - PO DAILY@0800 [facility] Home Medications Medication Instructions Recorded Iron/C/Folate 6/B12/Zn/Stomach 1 each PO BID #60 capsule 04/08/18 [Chromagen Softgel] Abnormal Lab Results 03/21/19 03/21/19 03/21/19 16:57 16:57 16:57 RBC 3.34 L Hgb 4.7 L* Hct 18.1 L D MCV 54.0 L MCH 14.0 L D MCHC 26.0 L RDW 31.2 H Plt Count 114 L D Retic Count PT with INR INR Chloride 109 H Anion Gap 7 L BUN 5.0 L Iron 14 L TIBC 569 H Iron Saturation 2 L Unsaturated IBC 555 H Ferritin 1.4 L AST 14 L Crossmatch 03/21/19 03/21/19 03/21/19 16:57 16:57 18:35 RBC Hgb Hct MCV MCH MCHC RDW Plt Count Retic Count 2.18 H PT with INR 13.70 H INR 1.16 H Chloride Anion Gap BUN Iron TIBC Iron Saturation Unsaturated IBC Ferritin AST Crossmatch See Detail ASSESSMENT AND PLAN: 1. Symptomatic anemia - In addition to menorrhagia, may also have another reason for anemia. Being transfused PRBC in the ER. Low platelets in association with severe iron deficiency is concerning. Low corrected reticulocyte count may signal the intensity of her iron deficiency - she will benefit from IV iron supplementation even after blood transfusion. Get Hb electrophoresis and consult Hematology. Menorrhagia may be due to derangements in sex hormone metabolism caused by morbid obesity. Consult CREPE LAMINATOR OPERATOR. Will continue comprehensive care for all of patients comorbid conditions. 2. Morbid obesity Counseled on the risks associated with morbid obesity. Will provide patient all the necessary assistance, counseling and positive reinforcement to facilitate weight loss. Consult porcelain buildup assistant. 3. DVT prophylaxis - SCD 4. Advance directives - Full code
[2019-03-21 22:12] LABS: ANISOCYTOSIS 3+; OVALOCYTE 1+; PLATELET ESTIMATE DECREASED; TEAR DROP CELLS 1+
--- NOTE | 2019-03-21 22:36 | CONSULT ---
Consult Reason for Consultation:: Menorrhagia - History of Present Illness Chief Complaint: Anemia History of Present Illness: 24yo G0 morbidly obese female sent in for transfusion given anemia on labs ordered by PCP (Dr. Devlin at [address] [place] [address]). Has no Food Service Clerk. Longstanding history of menorrhagia, for which is non compliant with yeast maker follow up (2016, 2018, 2019). States she has always had irregular cycles, with "heavy flow" but never sought out treatment Not actively bleeding. Cycle ended three weeks ago- only lasted 5 days and was "normal" per her report. Cycles prior were heavy, lasting 10 days and using only 2-3 pads on heaviest days.... states only 2-3 because she is sometimes too lazy to change in more often. No IMB. No cramping. Admitted 2019 for transfusion, Hct was 20. Not actively bleeding at that time. Sono done then showing no intrauterine pathology, was advised outpatient follow up, which she did not do. Noncompliant with iron supplementation 2016 Admission for anemia as well, again, no outpatient yeast maker follow up. 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 h/o hospitalization 01/2016 for headache. LP brain MRI & CThead was done, neg ). No: Seizure Cardio/Vascular: No: AFIB, Aneurysm, Aortic Insufficiency, Aortic Stenosis, CAD , CHF, Deep Vein Thrombosis, HTN, Hyperlipdemia, LA, Mitral Insufficiency, Mitral Stenosis, Murmur, Pulmonary Hypertension, Other Hepatobiliary: No: Cirrhosis, Cholelithiasis, Cholecystitis, Choledocholithiasis , Hepatitis A, Hepatitis B, Hepatitis C, Other Renal/: No: Renal Failure, Renal Inusuff, BPH, Cancer, Hematuria, Hemodialysis , Neurogenic Bladder, Renal Calculi, UTI, Other Reproductive: No: Ectopic , Endometriosis, Fibroids, PID, Polycystic Ovary Syndrome, Postmenopausal, Other ...LMP: 04/02/19 ...LMP Comment: Lasted 5 days ...: No ...: 0 Heme/Onc: Yes: Anemia Rheumatology: Yes: Other (declines any history) - Past Surgical History Past Surgical History: Yes: None - Alcohol/Substance Use Hx Alcohol Use: No History of Substance Use: reports: None - Smoking History Smoking history: Never smoked Have you smoked in the past 12 months: No - Social History History of Recent Travel: No Home Medications - Allergies Allergies/Adverse Reactions: Allergies Allergy/AdvReac Type Severity Reaction Status Date / Time No Known Allergies Allergy Verified 03/21/19 16:30 - Home Medications Home Medications: Ambulatory Orders Iron/C/Folate 6/B12/Zn/Stomach [Chromagen Softgel] 1 each PO BID #60 capsule Review of Systems - Review of Systems Cardiovascular: denies: No Symptoms, Chest Pain, Edema, Palpitations, Shortness of Breath, Other Respiratory: denies: No Symptoms, Cough, Exercise Intolerance, Hemoptysis, Orthopnea, PND, Snoring, SOB, SOB on Exertion, Wheezing, Other Gastrointestinal: denies: No Symptoms, Abdominal Pain, Bloating, Constipation, Diarrhea, Dysphagia, Indigestion, Melena, Nausea, Rectal Bleeding, Vomiting, Vomiting Blood, Other Genitourinary: denies: No Symptoms, Burning, Discharge, Dysuria, Flank Pain, Frequency, Hematuria, Incontinence, Lesions, Menses, Pain, Testicular Mass, Testicular Pain, Testicular Swelling, Urgency, Vaginal Bleeding, Other Physical Exam Vital Signs: Vital Signs Temperature 97.9 F 03/21/19 16:30 Pulse Rate 115 H 03/21/19 16:30 Respiratory Rate 18 03/21/19 16:30 Blood Pressure 132/68 03/21/19 16:30 O2 Sat by Pulse Oximetry (%) 100 03/21/19 16:30 Constitutional: Yes: Well Nourished, No Distress, Calm Eyes: Yes: WNL, Conjunctiva Clear, EOM Intact Gastrointestinal: Yes: Soft, Abdomen, Obese (Deferred pelvic exam, as not actively bleeding) Labs: CBC, BMP 03/21/19 16:57 03/21/19 16:57 Imaging - Results Ultrasound: Report Reviewed (2019 sonogram reviewed) Assessment/Plan 24yo with profound anemia, history of menorrhagia sent in by PCP for transfusion Admitted to medicine team; defer transfusion protocol to their discretion. Hematology consult per medicine discretion given also thrombocytopenia. Sonogram from 2019 reviewed and essentially no structural uterine pathology- no need to repeat at this time as unlikely to be different. Bleeding likely secondary to annovulation given high BMI/obesity Not actively bleeding at this time, and therefore no in house YARDAGE CALLER intervention indicated; must establish outpatient care- as she has been noncompliant in the past. 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 Continue iron as outpatient Patient aware to establish care at [facility] care with [facility]. Indu Parish MD
[2019-03-21 22:40] LABS: MACROCYTOSIS 1+
[2019-03-21 22:41] LABS: ROULEAU 1+
[2019-03-22 00:27] VITALS: BMI 47.4
--- NOTE | 2019-03-22 02:17 | HP ---
CHIEF COMPLAINT: sent from PCP for low hemoglobin PCP: Dr. Devlin HISTORY OF PRESENT ILLNESS: Lashonda Leggett is a 24 year old female with a past medical history of iron deficiency anemia secondary to heavy menstrual bleeding, migraines presenting from her PCP's office for low hemoglobin requiring transfusion. STated that her Hgb at her PCP's office was in the 4s. Patient has had multiple transfusions in the past in 2016, 2018, 2019. She notes that her last menstrual period was 3 weeks ago for a total of 5 days during which she used 3 pads per day and noted that she did not change her pads even when they were soaked. She endorsed that her periods are always heavy with a lot of bleeding and that she does not follow with a director energy currently. She was previously on iron supplementation but ceased taking supplementation 1 year prior. On this episode she notes that she occasionally does have dyspnea on exertion but otherwise denies cp, sob, abd pain, n/v/c/d, fever, chills, dizziness, lightheadedness, visual changes, numbness, tinging, pica symptoms, weakness, hematuria, hematochezia, hematemesis, hemoptosis melena, urinary frequency, hesitancy, urgency, dysuria. Denies sick contacts or recent travel. ER course was notable for: (1) HR 115 (2) Hgb 4.7, Hct 18.1, MCV 54, retic 2.18, CRE 1.1 (baseline 0.7-0.8), pre- transfusion iron studies (iron 14, TIBC 569, iron sat 2, ferretin 1.4) (3) CXR with no acute pathology Recent Travel: denies PAST MEDICAL HISTORY: as above PAST SURGICAL HISTORY: denies Social History: Smoking: denies ever smoking Alcohol: denies Drugs: denies Does not work currently or go to school. Takes care of her nephews and nieces. Allergies No Known Allergies Allergy (Verified 03/21/19 16:30) HOME MEDICATIONS: Home Medications Medication Instructions Recorded Iron/C/Folate 6/B12/Zn/Stomach 1 each PO BID #60 capsule 04/08/18 [Chromagen Softgel] REVIEW OF SYSTEMS CONSTITUTIONAL: Absent: fever, chills, diaphoresis, generalized weakness, malaise, loss of appetite, weight change HEENT: Absent: rhinorrhea, nasal congestion, throat pain, throat swelling, difficulty swallowing, visual changes CARDIOVASCULAR: Absent: chest pain, syncope, palpitations, irregular heart rate, lightheadedness , RESPIRATORY: dyspnea with exertion Absent: cough, shortness of breath, orthopnea, wheezing, stridor, hemoptysis GASTROINTESTINAL: Absent: abdominal pain, abdominal distension, nausea, vomiting, diarrhea, constipation, melena, hematochezia GENITOURINARY: Absent: dysuria, frequency, urgency, hesitancy, hematuria, flank pain MUSCULOSKELETAL: Absent: myalgia, arthralgia, joint swelling, back pain, neck pain SKIN: Absent: rash, itching, pallor HEMATOLOGIC/IMMUNOLOGIC: Absent: easy bleeding, easy bruising, lymphadenopathy, frequent infections ENDOCRINE: Absent: unexplained weight gain, unexplained weight loss, heat intolerance, cold intolerance NEUROLOGIC: Absent: headache, focal weakness or paresthesias, dizziness, unsteady gait, seizure, mental status changes, bladder or bowel incontinence PSYCHIATRIC: Absent: anxiety, depression, suicidal or homicidal ideation, hallucinations. PHYSICAL EXAMINATION Vital Signs - 24 hr 03/21/19 03/21/19 03/22/19 16:30 23:35 00:15 Temperature 97.9 F 97.7 F 98.7 F Pulse Rate 115 H 94 H Pulse Rate [ 94 H Radial] Respiratory 18 18 20 Rate Blood Pressure 132/68 128/74 Blood Pressure 137/67 [Right Arm] O2 Sat by Pulse 100 100 Oximetry (%) 03/22/19 03/22/19 00:18 00:23 Temperature 98.7 F Pulse Rate 94 H Pulse Rate [ Radial] Respiratory 20 Rate Blood Pressure 128/74 Blood Pressure [Right Arm] O2 Sat by Pulse 100 Oximetry (%) GENERAL: Awake, alert, and fully oriented, in no acute distress. HEAD: Normal with no signs of trauma. EYES: Pupils equal, round and reactive to light, extraocular movements intact, sclera anicteric, conjunctiva clear. EARS, NOSE, THROAT: Oropharynx clear without exudates. Moist mucous membranes. NECK: Normal range of motion, supple without lymphadenopathy, JVD. LUNGS: Breath sounds equal, clear to auscultation bilaterally. No wheezes, and no crackles. No accessory muscle use. HEART: Regular rate and rhythm, normal S1 and S2 with systolic ejection murmur. ABDOMEN: Soft, nontender, not distended, normoactive bowel sounds, no guarding, no rebound, no masses. MUSCULOSKELETAL: Normal range of motion at all joints. No bony deformities or tenderness. No CVA tenderness. UPPER EXTREMITIES: 2+ pulses, warm, well-perfused. No cyanosis. No clubbing. No peripheral edema. LOWER EXTREMITIES: 2+ pulses, warm, well-perfused. No calf tenderness. No peripheral edema. NEUROLOGICAL: Cranial nerves II-XII intact. 5/5 muscle strength upper and lower extremities bilaterally. PSYCHIATRIC: Cooperative. Good eye contact. Appropriate mood and affect. SKIN: Warm, dry, normal turgor, no rashes or lesions noted, normal capillary refill. Laboratory Results - last 24 hr 03/21/19 03/21/19 03/21/19 16:57 16:57 16:57 WBC 7.1 RBC 3.34 L Hgb 4.7 L* Hct 18.1 L D MCV 54.0 L MCH 14.0 L D MCHC 26.0 L RDW 31.2 H Plt Count 114 L D MPV 11.1 D Absolute Neuts (auto) 4.8 Neutrophils % 67.3 Lymphocytes % 22.5 D Monocytes % 8.6 Eosinophils % 0.5 Basophils % 1.1 Nucleated RBC % 0 Hypochromia 3+ Platelet Estimate Decreased Polychromasia 1+ Poikilocytosis 1+ Anisocytosis 3+ Microcytosis 3+ Macrocytosis 1+ Tear Drop Cells 1+ Ovalocytes 1+ Rouleaux 1+ Retic Count PT with INR INR PTT (Actin FS) Sodium 142 Potassium 3.6 Chloride 109 H Carbon Dioxide 26 Anion Gap 7 L BUN 5.0 L Creatinine 1.1 Est GFR (CKD-EPI)AfAm 82.53 Est GFR (CKD-EPI)NonAf 71.21 Random Glucose 80 Calcium 8.9 Iron 14 L TIBC 569 H Iron Saturation 2 L Unsaturated IBC 555 H Ferritin 1.4 L Total Bilirubin 0.3 AST 14 L ALT 14 Alkaline Phosphatase 85 LD Total 225 Total Protein 7.7 Albumin 3.4 TSH 1.77 Blood Type Antibody Screen Crossmatch 03/21/19 03/21/19 03/21/19 16:57 16:57 18:35 WBC RBC Hgb Hct MCV MCH MCHC RDW Plt Count MPV Absolute Neuts (auto) Neutrophils % Lymphocytes % Monocytes % Eosinophils % Basophils % Nucleated RBC % Hypochromia Platelet Estimate Polychromasia Poikilocytosis Anisocytosis Microcytosis Macrocytosis Tear Drop Cells Ovalocytes Rouleaux Retic Count 2.18 H PT with INR 13.70 H INR 1.16 H PTT (Actin FS) 26.9 Sodium Potassium Chloride Carbon Dioxide Anion Gap BUN Creatinine Est GFR (CKD-EPI)AfAm Est GFR (CKD-EPI)NonAf Random Glucose Calcium Iron TIBC Iron Saturation Unsaturated IBC Ferritin Total Bilirubin AST ALT Alkaline Phosphatase LD Total Total Protein Albumin TSH Blood Type O POSITIVE Antibody Screen Negative Crossmatch See Detail EKG--> sinus tachycardia, borderline LVH, no ST segment changes, QTc 436 ASSESSMENT/PLAN: Lashonda Leggett is a 24 year old female with a past medical history of iron deficiency anemia secondary to heavy menstrual bleeding, migraines admitted for iron deficiency anemia requiring transfusion. Iron Deficiency Anemia requiring transfusion - likely in setting of heavy menstrual periods, need to rule out alternative causes due to persistent transfusions - H/H as above, continue to monitor - transfusing 3 units PRBCs - Hgb electropharesis to rule out Hgb abnormalities - will need iron supplementation, may benefit from IV iron infusions - Water Safety Instructor consulted, recs appreciated, will likely benefit from Mirena IUD or OCPs and outpatient follow-up with MANAGER TECHNICAL TRAINING Morbid Obesity - discussed weight loss - dietary consult ANGELA - likely in setting of poor perfusion due to anemia - administering blood products - continue to monitor DVT PPx - SCDs - no chemical AC in setting of anemia FEN - receiving blood transfusions - continue to monitor electrolytes and replete as necessary - regular diet Dispo - admit to Med-surg Family Medical History Family History: Denies Visit type - Emergency Visit Emergency Visit: Yes ED Registration Date: 03/21/19 Care time: The patient presented to the Emergency Department on the above date and was hospitalized for further evaluation of their emergent condition. - New Patient This patient is new to me today: Yes Date on this admission: 03/22/19 - Critical Care Critical Care patient: No
[2019-03-22] MEDS ORDERED: FERROUS SO4 325 MG TABLET (FP) PO SCH (08:00)
[2019-03-22 08:39] LABS: BASO % 0.9 % (0-2.0); EOS % 0.4 % (0-4.5); LYMPH % 31.2 % (8-40); MCHC 29.9 g/dl (32.0-36.0); MEAN CELL VOLUME 62.5 fl (80-96); MEAN PLT VOLUME 9.6 fl (7.5-11.1); MONO % 6.9 % (3.8-10.2); NEUT % 60.6 % (42.8-82.8); PLATELET COUNT 66 K/MM3 (134-434); RBC 3.53 M/mm3 (3.60-5.2); RDW 41.2 % (11.6-15.6); WHITE BLOOD COUNT 7.4 K/mm3 (4.0-10.0)
[2019-03-22 08:45] LABS: MCH 18.7 pg (25.7-33.7)
[2019-03-22 08:47] LABS: HEMOGLOBIN 6.6 GM/dL (10.7-15.3)
[2019-03-22 08:54] LABS: BLOOD UREA NITROGEN 6.3 mg/dL (7-18); CALCIUM 8.9 mg/dL (8.5-10.1); CREATININE 0.8 mg/dL (0.55-1.3); MAGNESIUM 2.2 mg/dL (1.8-2.4); POTASSIUM 3.7 mmol/L (3.5-5.1)
[2019-03-22] MEDS ORDERED: FLU VACCINE QUAD 60 MCG/0.5 ML (MDV 19-20) IM ONE (09:00)
[2019-03-22 11:02] LABS: HEMATOCRIT 26.3 % (32.4-45.2); HEMOGLOBIN 7.7 GM/dL (10.7-15.3); MCHC 29.2 g/dl (32.0-36.0); MEAN CELL VOLUME 64.8 fl (80-96); MEAN PLT VOLUME 9.1 fl (7.5-11.1); RBC 4.06 M/mm3 (3.60-5.2); RDW 40.9 % (11.6-15.6)
[2019-03-22 11:07] LABS: MCH 18.9 pg (25.7-33.7)
[2019-03-22 11:08] LABS: ADD RBC MORPHOLOGY YES
--- NOTE | 2019-03-22 12:42 | EKG ---
Test Reason : Blood Pressure : / mmHG Vent. Rate : 104 BPM Atrial Rate : 104 BPM P-R Int : 116 ms QRS Dur : 078 ms QT Int : 332 ms P-R-T Axes : 047 014 044 degrees QTc Int : 436 ms SINUS TACHYCARDIA MINIMAL VOLTAGE CRITERIA FOR LVH, MAY BE NORMAL VARIANT BORDERLINE ECG WHEN COMPARED WITH ECG OF 17-APR-2017 22:41, NO SIGNIFICANT CHANGE WAS FOUND Confirmed by ANNIE HARPER, EDU ([id number]) on 03/22/2019 12:41:46 PM Referred By: Confirmed By:EDU VALENCIA MD
[2019-03-22 14:55] LABS: ANISOCYTOSIS 1+; MACROCYTOSIS 0; OVALOCYTE 1+; PLATELET ESTIMATE NORMAL; TEAR DROP CELLS 1+
[2019-03-22 15:04] VITALS: BP 129/77; PULSE 94; TEMP 98
[2019-03-22 15:16] LABS: PLATELET COUNT 213 K/MM3 (134-434)
--- NOTE | 2019-03-22 15:29 | DS ---
Physical Exam: SUBJECTIVE: Patient seen and examined at bedside. She was admitted overnight for low hb. This AM she offers no new complaints. OBJECTIVE: Vital Signs Period Temp Pulse Resp BP Sys/Holly Pulse Ox Last 24 Hr 97.7 F-98.7 F 90-115 18-20 128-149/64-89 100-100 PHYSICAL EXAM GENERAL: The patient is awake, alert, and fully oriented, in no acute distress. Obese HEAD: Normal with no signs of trauma. EYES: PERRL, extraocular movements intact, sclera anicteric, conjunctiva clear. ENT: Ears normal, oropharynx clear without exudates, moist mucous membranes. NECK: Trachea midline, full range of motion, supple. LUNGS: Breath sounds equal, clear to auscultation bilaterally, no wheezes, no crackles, no accessory muscle use. HEART: Regular rate and rhythm, S1, S2 without murmur, rub or gallop. ABDOMEN: Obese, soft, nontender, nondistended, normoactive bowel sounds, no guarding, no rebound, no hepatosplenomegaly, no masses. EXTREMITIES: 2+ pulses, warm, well-perfused, no edema. NEUROLOGICAL: Cranial nerves II through XII grossly intact. Normal speech, gait not observed. PSYCH: Normal mood, normal affect. SKIN: Warm, dry, normal turgor, no rashes or lesions noted LABS 03/21/19 03/21/19 03/21/19 16:57 16:57 16:57 WBC 7.1 RBC 3.34 L Hgb 4.7 L* Hct 18.1 L D MCV 54.0 L MCH 14.0 L D MCHC 26.0 L RDW 31.2 H Plt Count 114 L D MPV 11.1 D Absolute Neuts (auto) 4.8 Neutrophils % 67.3 Neutrophils % (Manual) Band Neutrophils % Lymphocytes % 22.5 D Lymphocytes % (Manual) Monocytes % 8.6 Monocytes % (Manual) Eosinophils % 0.5 Eosinophils % (Manual) Basophils % 1.1 Basophils % (Manual) Myelocytes % (Man) Promyelocytes % (Man) Blast Cells % (Manual) Nucleated RBC % 0 Metamyelocytes Hypochromia 3+ Platelet Estimate Decreased Platelet Comment Polychromasia 1+ Poikilocytosis 1+ Anisocytosis 3+ Microcytosis 3+ Macrocytosis 1+ Spherocytes Tear Drop Cells 1+ Ovalocytes 1+ Stomatocytes [place] Cells Rouleaux 1+ Retic Count PT with INR INR PTT (Actin FS) Sodium 142 Potassium 3.6 Chloride 109 H Carbon Dioxide 26 Anion Gap 7 L BUN 5.0 L Creatinine 1.1 Est GFR (CKD-EPI)AfAm 82.53 Est GFR (CKD-EPI)NonAf 71.21 Random Glucose 80 Calcium 8.9 Magnesium Iron 14 L TIBC 569 H Iron Saturation 2 L Unsaturated IBC 555 H Ferritin 1.4 L Total Bilirubin 0.3 AST 14 L ALT 14 Alkaline Phosphatase 85 LD Total 225 Total Protein 7.7 Albumin 3.4 TSH 1.77 Blood Type Antibody Screen Crossmatch 03/21/19 03/21/19 03/21/19 16:57 16:57 18:35 WBC RBC Hgb Hct MCV MCH MCHC RDW Plt Count MPV Absolute Neuts (auto) Neutrophils % Neutrophils % (Manual) Band Neutrophils % Lymphocytes % Lymphocytes % (Manual) Monocytes % Monocytes % (Manual) Eosinophils % Eosinophils % (Manual) Basophils % Basophils % (Manual) Myelocytes % (Man) Promyelocytes % (Man) Blast Cells % (Manual) Nucleated RBC % Metamyelocytes Hypochromia Platelet Estimate Platelet Comment Polychromasia Poikilocytosis Anisocytosis Microcytosis Macrocytosis Spherocytes Tear Drop Cells Ovalocytes Stomatocytes Darius Cells Rouleaux Retic Count 2.18 H PT with INR 13.70 H INR 1.16 H PTT (Actin FS) 26.9 Sodium Potassium Chloride Carbon Dioxide Anion Gap BUN Creatinine Est GFR (CKD-EPI)AfAm Est GFR (CKD-EPI)NonAf Random Glucose Calcium Magnesium Iron TIBC Iron Saturation Unsaturated IBC Ferritin Total Bilirubin AST ALT Alkaline Phosphatase LD Total Total Protein Albumin TSH Blood Type O POSITIVE Antibody Screen Negative Crossmatch See Detail 03/22/19 03/22/19 03/22/19 07:15 07:15 07:15 WBC 7.4 RBC 3.53 L Hgb 6.6 L* Hct 22.0 L D MCV 62.5 L D MCH 18.7 L D MCHC 29.9 L RDW 41.2 H Plt Count 66 L D MPV 9.6 D Absolute Neuts (auto) 4.5 Neutrophils % 60.6 Neutrophils % (Manual) Band Neutrophils % Lymphocytes % 31.2 D Lymphocytes % (Manual) Monocytes % 6.9 Monocytes % (Manual) Eosinophils % 0.4 Eosinophils % (Manual) Basophils % 0.9 Basophils % (Manual) Myelocytes % (Man) Promyelocytes % (Man) Blast Cells % (Manual) Nucleated RBC % 0 Metamyelocytes Hypochromia Platelet Estimate Platelet Comment Polychromasia Poikilocytosis Anisocytosis Microcytosis Macrocytosis Spherocytes Tear Drop Cells Ovalocytes Stomatocytes [place] Cells Rouleaux Retic Count PT with INR INR PTT (Actin FS) Sodium 144 Potassium 3.7 Chloride 111 H Carbon Dioxide 26 Anion Gap 8 BUN 6.3 L Creatinine 0.8 Est GFR (CKD-EPI)AfAm 121.29 Est GFR (CKD-EPI)NonAf 104.65 Random Glucose 77 Calcium 8.9 Magnesium 2.2 Iron TIBC Iron Saturation Unsaturated IBC Ferritin Total Bilirubin AST ALT Alkaline Phosphatase LD Total Total Protein Albumin TSH Blood Type O POSITIVE Antibody Screen Negative Crossmatch 03/22/19 10:40 WBC 9.0 RBC 4.06 Hgb 7.7 L Hct 26.3 L D MCV 64.8 L MCH 18.9 L MCHC 29.2 L RDW 40.9 H Plt Count 213 D MPV 9.1 Absolute Neuts (auto) Neutrophils % No Result Required. Neutrophils % (Manual) 57.2 Band Neutrophils % 0.0 Lymphocytes % No Result Required. Lymphocytes % (Manual) 31.6 Monocytes % Monocytes % (Manual) 3 L Eosinophils % Eosinophils % (Manual) 1.0 Basophils % Basophils % (Manual) 0.0 Myelocytes % (Man) 0 Promyelocytes % (Man) 1 Blast Cells % (Manual) 0 Nucleated RBC % 1 H Metamyelocytes 1 Hypochromia 2+ Platelet Estimate Normal Platelet Comment Present Polychromasia 1+ Poikilocytosis 2+ Anisocytosis 1+ Microcytosis 1+ Macrocytosis 0 Spherocytes 2+ Tear Drop Cells 1+ Ovalocytes 1+ Stomatocytes 1+ Darius Cells 1+ Rouleaux Retic Count PT with INR INR PTT (Actin FS) Sodium Potassium Chloride Carbon Dioxide Anion Gap BUN Creatinine Est GFR (CKD-EPI)AfAm Est GFR (CKD-EPI)NonAf Random Glucose Calcium Magnesium Iron TIBC Iron Saturation Unsaturated IBC Ferritin Total Bilirubin AST ALT Alkaline Phosphatase LD Total Total Protein Albumin TSH Blood Type Antibody Screen Crossmatch HOSPITAL COURSE: Date of Admission:03/21/19 24 y/o female PMH Fe deficiency anemia 2/2 menorrhagia, morbid obesity, and migraines, admitted for iron deficiency anemia requiring transfusion. She was sent in from PCP and was asymptomatic throughout her stay. Hb 7.7 s/p transfusion. She was advised to f/u with ob-office nurse. She was also educated on the need for diet and exercise. Her stay was notable for ANGELA, likely pre-renal. She was dc to home. Date of Discharge: 03/22/19 Minutes to complete discharge: 40 Discharge Summary Problems reviewed: Yes Reason For Visit: ANEMIA Current Active Problems Anemia (Chronic) Condition: Stable - Instructions Diet, Activity, Other Instructions: YOUR VISIT You came to the hospital because you were found to have a low hemoglobin at the doctor's office. You were admitted to the hospital for treatment of this concern. While here you were seen by an president ceo & founder. You are now stable and may return home. GENERAL HEALTH Please eat a healthy diet, high in fruits and vegetables and exercise regularly. ADDITIONAL CARE Please make an appointment to see your primary care provider, Dr. Devlin, 1 week from today. Please make an appointment to see an president ceo & founder to establish care within 1 week. A referral has to Dr. Parish has been provided. Follow up with Director Of Mobile Marketing (blood doctor) Dr. Weeks within one week. A referral has been provided. ADDITIONAL INFORMATION Please call 911 or come directly to the emergency department if you experience unusual headache, vision change, shortness of breath, chest pain, numbness, tingling, loss of alertness/awareness, loss of function, unusual bleeding or any alarming symptoms. Please establish care with a Child Neurologist as soon as possible Referrals: Indu Parish MD [Staff Physician] - Wily Dumont MD [Staff Physician] - Kapil Devlin MD [Primary Care Provider] - Alfredo Weeks MD [Staff Physician] - Disposition: HOME This patient is new to me today: Yes Date on this admission: 04/13/19 Emergency Visit: No Critical Care patient: No - Discharge Referral Referred to [facility] Med [facility] No ATTENDING PHYSICIAN STATEMENT I saw and evaluated the patient. I reviewed the resident's note and discussed the case with the resident. I agree with the resident's findings and plan as documented. SUBJECTIVE: OBJECTIVE: ASSESSMENT AND PLAN:
--- NOTE | 2019-03-22 15:32 | PN ---
Teaching Attending Note Name of Resident: Rodrigue Andersen ATTENDING PHYSICIAN STATEMENT I saw and evaluated the patient. I reviewed the resident's note and discussed the case with the resident. I agree with the resident's findings and plan as documented. SUBJECTIVE: Patient is a 24 year old female with a PMHx of iron deficiency anemia secondary to heavy menstrual bleeding, migraines presenting from her PCP's office for low hemoglobin requiring transfusion with hemoglobin of 4.0, patient had no symptoms , received transfusion. denies any shortness of breath. OBJECTIVE: Vital Signs Temperature 98 F 03/22/19 15:00 Pulse Rate 94 H 03/22/19 15:00 Respiratory Rate 18 03/22/19 15:00 Blood Pressure 129/77 03/22/19 15:00 O2 Sat by Pulse Oximetry (%) 100 03/22/19 00:18 GENERAL: The patient is awake, alert, and fully oriented, in no acute distress. HEAD: Normal with no signs of trauma. EYES: PERRL, extraocular movements intact, sclera anicteric, conjunctiva clear. ENT: Ears normal, oropharynx clear without exudates, moist mucous membranes. NECK: Trachea midline, full range of motion, supple. LUNGS: Breath sounds equal, clear to auscultation bilaterally, no wheezes, no crackles, no accessory muscle use. HEART: Regular rate and rhythm, S1, S2 without murmur, rub or gallop. ABDOMEN: Soft, nontender, nondistended, normoactive bowel sounds, no guarding, no rebound, no hepatosplenomegaly, no masses. EXTREMITIES: 2+ pulses, warm, well-perfused, no edema. NEUROLOGICAL: Cranial nerves II through XII grossly intact. Normal speech, gait not observed. PSYCH: Normal mood, normal affect. SKIN: Warm, dry, normal turgor, no rashes or lesions noted CBCD WBC 9.0 K/mm3 (4.0-10.0) 03/22/19 10:40 RBC 4.06 M/mm3 (3.60-5.2) 03/22/19 10:40 Hgb 7.7 GM/dL (10.7-15.3) L 03/22/19 10:40 Hct 26.3 % (32.4-45.2) L D 03/22/19 10:40 MCV 64.8 fl (80-96) L 03/22/19 10:40 MCHC 29.2 g/dl (32.0-36.0) L 03/22/19 10:40 RDW 40.9 % (11.6-15.6) H 03/22/19 10:40 Plt Count 213 K/MM3 (134-434) D 03/22/19 10:40 MPV 9.1 fl (7.5-11.1) 03/22/19 10:40 CMP Sodium 144 mmol/L (136-145) 03/22/19 07:15 Potassium 3.7 mmol/L (3.5-5.1) 03/22/19 07:15 Chloride 111 mmol/L (98-107) H 03/22/19 07:15 Carbon Dioxide 26 mmol/L (21-32) 03/22/19 07:15 Anion Gap 8 MMOL/L (8-16) 03/22/19 07:15 BUN 6.3 mg/dL (7-18) L 03/22/19 07:15 Creatinine 0.8 mg/dL (0.55-1.3) 03/22/19 07:15 Random Glucose 77 mg/dL (74-106) 03/22/19 07:15 Calcium 8.9 mg/dL (8.5-10.1) 03/22/19 07:15 Total Bilirubin 0.3 mg/dL (0.2-1) 03/21/19 16:57 AST 14 U/L (15-37) L 03/21/19 16:57 ALT 14 U/L (13-61) 03/21/19 16:57 Alkaline Phosphatase 85 U/L (45-117) 03/21/19 16:57 Total Protein 7.7 g/dl (6.4-8.2) 03/21/19 16:57 Albumin 3.4 g/dl (3.4-5.0) 03/21/19 16:57 Current Medications Generic Name Dose Route Start Last Admin Trade Name Freq PRN Reason Stop Dose Admin Ferrous Sulfate 325 mg 03/22/19 08:00 03/22/19 09:33 Feosol - PO 325 mg DAILY@[facility] Administration Home Medications Medication Instructions Recorded Docusate Sodium [Colace] 100 mg PO BID #60 capsule 01/30/20 Ferrous Sulfate [Feosol] 325 mg PO BID #60 ud 03/22/19 ASSESSMENT AND PLAN: Patient is a 24 year old female with a past medical history of iron deficiency anemia secondary to heavy menstrual bleeding, migraines admitted for iron deficiency anemia requiring transfusion. Iron Deficiency Anemia requiring transfusion s/p transfusin repet cbc is 7.7 , will dc patient home with follow up visit with obgyn Morbid Obesity; weight loss, lifestyle modification ANGELA: due to prerenal improved post transfusion dc patient home
[2019-03-27 16:07] LABS: HGB SOLUBILITY Negative (Negative); Hgb C 0 % (0.0); Hgb F 0 % (0.0-2.0); Hgb S 16.6 % (0.0)
== END 2019-03-22 18:53 | disposition home or self-care (01) | DRG 663 ==
LOC: JER 16:05 → JERBED 20:28 → J8W 23:57
PROVIDERS: ADMIT Internal Medicine; ATTEND Internal Medicine
PROC: 30233N1 Transfusion of Nonautologous Red Blood Cells into Peripheral Vein, Percutaneous Approach (ICD-10-PCS; principal; 2019-03-22)
DX: D50.9 Iron deficiency anemia, unspecified (principal); Z68.42 Body mass index [BMI] 45.0-49.9, adult; E66.01 Morbid (severe) obesity due to excess calories; N17.9 Acute kidney failure, unspecified; D69.6 Thrombocytopenia, unspecified; N92.0 Excessive and frequent menstruation with regular cycle
CPT/HCPCS: 36415; 36430; 36511; 71046-TC-FY; 80048; 80053; 82728; 83010; 83021; 83540; 83550; 83615; 83735; 84443; 85025; 85044; 85610; 85660; 85730; 86850; 86900; 86901; 86922; 93005; 93010; 99285-25; G0008; P9038; P9058; Q2036